=== PATIENT | female | born 1980 | race Hispanic/Latino ===

== ENCOUNTER 2016-10-21 09:46 | Emergency (ER) | payer MEDICAID ==
[2016-10-21 09:54] VITALS: O2SAT 100
[2016-10-21] MEDS ORDERED: Sodium Chloride 0.9% 1,000 ML IV ONE (10:16)
--- NOTE | 2016-10-21 10:24 | C.PDOC ---
History Of Present Illness 36 y/o patient arrives in the ED with complaints of lower abdominal pain for 1 week. The patient reports LMP was 10/02/16. Patient also c/o vaginal bleeding for 20 days. The patient denies symptoms of headaches, dizziness, vomiting, fever, sweats, or chills. Time Seen by Provider: 10/21/16 10:02 Chief Complaint (Nursing): Abdominal Pain History/Exam Limitations: no limitations Onset/Duration Of Symptoms: Days, Persistent Current Symptoms Are (Timing): Still Present Severity: Mild Location Of Pain/Discomfort: Suprapubic Quality Of Discomfort: "Pain". denies: Sharp, Aching, Cramping Associated Symptoms: denies: Fever, Chills, Nausea, Vomiting Exacerbating Factors: denies: Cough Past Medical History Reviewed: Historical Data, Nursing Documentation, Vital Signs Vital Signs: Last Vital Signs Temp 97.6 F 10/21/16 09:50 Pulse 76 10/21/16 09:50 Resp 20 10/21/16 09:50 BP 107/77 10/21/16 09:50 Pulse Ox 100 10/21/16 11:22 Surgical History: No Surg Hx, Family History: States: Unknown Family Hx - Social History Hx Alcohol Use: No Hx Substance Use: No - Immunization History Hx Tetanus Toxoid Vaccination: No Hx Influenza Vaccination: No Hx Pneumococcal Vaccination: No Review Of Systems Except As Marked, All Systems Reviewed And Found Negative. Constitutional: Negative for: Fever, Chills, Sweats Cardiovascular: Negative for: Chest Pain, Light Headedness Respiratory: Negative for: Cough, Shortness of Breath Gastrointestinal: Positive for: Abdominal Pain. Negative for: Vomiting, Diarrhea Genitourinary: Positive for: Vaginal Bleeding. Negative for: Dysuria, Vaginal Discharge Skin: Negative for: Rash Physical Exam - Physical Exam Appears: Non-toxic, No Acute Distress Skin: Normal Color, Warm Head: Atraumatic, Normacephalic Oral Mucosa: Moist Throat: Normal, No Erythema, No Exudate Chest: Symmetrical Cardiovascular: Rhythm Regular Respiratory: Rales, No Rhonchi Gastrointestinal/Abdominal: Normal Exam, No Bowel Sounds, Soft, Tenderness ( suprapubic), No Guarding, No Rebound Extremity: Capillary Refill (<2 sec. ) ED Course And Treatment - Laboratory Results Result Diagrams: 10/21/16 10:33 10/21/16 10:33 O2 Sat by Pulse Oximetry: 100 (RA) Pulse Ox Interpretation: Normal Progress Note: Toradol, IV fluids, labs ordered. On re-eval, patient reports improvement of pain and is resting comfortably, in no acute distress. Abdomen remains soft. Advised follow up with PMD/clinic within 1-2 days. Disposition Counseled Patient/Family Regarding: Studies Performed, Diagnosis, Need For Followup, Rx Given - Disposition Referrals: [facility] [Outside] [facility] [Outside] Disposition: HOME/ ROUTINE Disposition Time: 11:30 Condition: STABLE Additional Instructions: Follow up with EDITORIAL PROJECT MANAGER for further evaluation Prescriptions: Naproxen [Naprosyn] 1 tab PO BID PRN #25 tab PRN Reason: Pain Instructions: Dysfunctional Uterine Bleeding (ED), Abdominal Pain (ED) Forms: [employer] (Vietnamese), [employer] ([place]er) Print Language: SYRIAC - POA Present On Arrival: None - Clinical Impression Clinical Impression: Abdominal wall pain, DUB (dysfunctional uterine bleeding) - 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 - Scribe Statement The provider has reviewed the documentation as recorded by the Scribe (Beba Zamora)
[2016-10-21] MEDS ORDERED: Sodium Chloride 0.9% 1,000 ML ONE (10:36)
[2016-10-21 10:44] LABS: RBC URINE 2 /hpf (0-3); URINE BACTERIA RARE (<OCC); URINE BILIRUBIN NEGATIVE (NEGATIVE); URINE COLOR Straw (YELLOW); URINE GLUCOSE (UA) NORMAL (Normal); URINE KETONE NEGATIVE (NEGATIVE); URINE LEUKOCYTE ESTERASE NEG Leu/uL (Negative); URINE PROTEIN NEGATIVE (NEGATIVE); URINE UROBILINOGEN NORMAL mg/dL (0.2-1.0); WBC URINE 1 /hpf (0-5)
[2016-10-21 10:46] LABS: CHLORIDE 102 mmol/L (98-107)
[2016-10-21 10:47] LABS: POTASSIUM 4.1 mmol/L (3.6-5.2); SODIUM 139 mmol/L (132-148); URINE BLOOD 1+ (NEGATIVE)
[2016-10-21 10:49] LABS: ALB/GLOB RATIO 1.2 (1.0-2.1); ALKALINE PHOSPHATASE 43 U/L (38-126); AST/SGOT 21 U/L (14-36); BILIRUBIN,TOTAL 0.9 mg/dL (0.2-1.3); BLOOD UREA NITROGEN 13 mg/dL (7-17); CARBON DIOXIDE 23 mmol/L (22-30); GFR AFRICAN-AMERICAN > 60; TOTAL PROTEIN 7.4 g/dL (6.3-8.3)
[2016-10-21 10:50] LABS: ALT/SGPT 25 U/L (9-52); CALCIUM 8.6 mg/dl (8.6-10.4); GLUCOSE,RANDOM 80 mg/dL (65-105)
[2016-10-21 10:53] LABS: BASO % 0.5 % (0.0-2.0); EOS # 0.1 K/uL (0.0-0.7); HEMATOCRIT 38.7 % (34.0-47.0); LYMPH # 2.1 K/uL (1.0-4.3); LYMPH % 36.1 % (20.0-40.0); MEAN CELL VOLUME 82.7 fL (81.0-99.0); MEAN CORPUSCULAR HGB CONC 32.7 g/dL (33.0-37.0); MEAN PLATELET VOLUME 10.8 fL (7.2-11.7); MONO # 0.6 K/uL (0.0-0.8); MONO % 9.9 % (0.0-10.0); NRBC % 0.1 % (0.0-2.0); RED CELL DISTRIBUTION WIDTH 15.6 % (11.5-14.5); WHITE BLOOD COUNT 5.9 K/uL (4.8-10.8)
[2016-10-21 11:37] VITALS: BP 105/73; PULSE 69; RESP 14; TEMP 98.5
== END 2016-10-21 11:38 | disposition home or self-care (01) ==
LOC: C.ER 09:46
DX: N93.8 Other specified abnormal uterine and vaginal bleeding (principal); R10.30 Lower abdominal pain, unspecified
CPT/HCPCS: 80053; 81001; 83690; 84703; 85025; 96361; 96374; 99284; J1885; J7040

== ENCOUNTER 2017-08-25 08:43 | Emergency (ER) | payer MEDICAID, OTHER ==
[2017-08-25 09:00] VITALS: O2SAT 100; BMI 21.4
--- NOTE | 2017-08-25 09:36 | C.PDOC ---
History Of Present Illness <Debra Grove - Last Filed: 08/25/17 17:34> <Master Ortiz M - Last Filed: 08/26/17 07:38> Patient reports lower crampy abdominal pain and vaginal bleeding for 6 day denies fever, vomiting or diarrhea. (Debra Grove) History Per: Patient History/Exam Limitations: language barrier Onset/Duration Of Symptoms: Days (6) Current Symptoms Are (Timing): Still Present Severity: Mild Location Of Pain/Discomfort: Suprapubic Radiation Of Pain To:: None Quality Of Discomfort: Cramping Exacerbating Factors: None Last Bowel Movement: Today Recent travel outside of the [place]: No Abnormal Vaginal Bleeding: Yes <Debra Grove - Last Filed: 08/25/17 17:34> <Master Ortiz M - Last Filed: 08/26/17 07:38> Time Seen by Provider: 08/25/17 08:51 Chief Complaint (Nursing): Female Genitourinary Past Medical History Surgical History: Family History: States: Unknown Family Hx - Social History Hx Alcohol Use: No Hx Substance Use: No - Immunization History Hx Tetanus Toxoid Vaccination: No Hx Influenza Vaccination: No Hx Pneumococcal Vaccination: No <Debra Grove - Last Filed: 08/25/17 17:34> Vital Signs: Last Vital Signs Temp 98.5 F 08/25/17 15:11 Pulse 70 08/25/17 15:11 Resp 20 08/25/17 15:11 BP 102/69 08/25/17 15:11 Pulse Ox 100 08/25/17 17:35 Physical Exam - Physical Exam Appears: Well, Non-toxic Skin: Normal Color Oral Mucosa: Moist Neck: Normal Cardiovascular: Rhythm Regular Respiratory: Normal Breath Sounds Gastrointestinal/Abdominal: Tenderness (suprapubic) Extremity: Normal ROM Neurological/Psych: Oriented x3 <Debra Grove - Last Filed: 08/25/17 17:34> ED Course And Treatment - Laboratory Results Result Diagrams: 08/25/17 09:44 08/25/17 09:44 Lab Interpretation: Abnormal Urine POC: Negative O2 Sat by Pulse Oximetry: 100 Pulse Ox Interpretation: Normal - CT Scan/US No standard instances Other Rad Studies (CT/US): Read By Radiologist, Radiology Report Reviewed CT/US Interpretation: FINDINGS: UTERUS: Measures 9.9 x 5.0 x 7.8 cm. Anteverted and enlarged. 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 There is a 3.69 x 3.69 x 3.79 cm intramural posterior fundal fibroid. ENDOMETRIUM: Right horn endometrial stripe measures 6 mm and left horn endometrial stripe measures 8 mm. CERVIX: There are nabothian cysts in the cervix. RIGHT OVARY: Measures 4.1 x 2.4 x 4.0 cm. No solid mass. Normal flow. There is a 3.7 x 2.6 x 3.1 cm simple cyst. LEFT OVARY: Measures 2.4 x 2.5 x 1.9 cm. No solid mass. Normal flow. FREE FLUID: No significant free fluid noted. OTHER FINDINGS: None. IMPRESSION: 1. Didelphys uterus. 3.69 x 3.69 x 3.79 cm intramural posterior fundal fibroid. 2. 3.7 x 2.6 x 3.1 cm simple cyst in the right ovary. Progress Note: Patient treated with IVF NSS and toradol IV. On re-evaluation abdomen soft non-tender. Discharge and follow up with PATENT ATTORNEY Reassessment Condition: Unchanged <Debra Grove - Last Filed: 08/25/17 17:34> - Laboratory Results Result Diagrams: 08/25/17 09:44 08/25/17 09:44 <Master Ortiz - Last Filed: 08/26/17 07:38> Medical Decision Making <Debra Grove - Last Filed: 08/25/17 17:34> <Master Ortiz - Last Filed: 08/26/17 07:38> Medical Decision Making: attending: I have reviewed chart. I was available for consult. I submit my signature for billing purpose only. (Master Ortiz) Disposition Counseled Patient/Family Regarding: Studies Performed, Diagnosis, Need For Followup, Rx Given - Disposition Disposition Time: 15:00 - POA Present On Arrival: None <Debra Grove - Last Filed: 08/25/17 17:34> <Master Ortiz - Last Filed: 08/26/17 07:38> - Disposition Referrals: [facility] [Outside] [facility] [Outside] [facility] [Outside] Disposition: HOME/ ROUTINE Condition: STABLE Prescriptions: Ferrous Sulfate 325 mg PO DAILY #30 tablet Instructions: Anemia Caused by Low Iron, Heavy Periods, Uterine Fibroids (DC) Forms: [employer] (Lao) Print Language: YEMENI - Clinical Impression Clinical Impression: Uterine fibroid, DUB (dysfunctional uterine bleeding)
[2017-08-25 09:53] LABS: HCG,QUALITATIVE URINE NEGATIVE (NEGATIVE)
[2017-08-25 09:54] LABS: BASO % 0.8 % (0.0-2.0); EOS # 0.1 K/uL (0.0-0.7); EOS % 1.5 % (0.0-4.0); LYMPH # 1.5 K/uL (1.0-4.3); LYMPH % 31.3 % (20.0-40.0); MEAN CORPUSCULAR HEMOGLOBIN 22.1 pg (27.0-31.0); MEAN CORPUSCULAR HGB CONC 31.2 g/dL (33.0-37.0); MEAN PLATELET VOLUME 10.1 fL (7.2-11.7); MONO # 0.5 K/uL (0.0-0.8); MONO % 10.8 % (0.0-10.0); NEUT # 2.7 K/uL (1.8-7.0); NEUT % 55.6 % (50.0-75.0); NRBC % 0.2 % (0.0-2.0); RBC 3.54 Mil/uL (3.80-5.20); RED CELL DISTRIBUTION WIDTH 19.8 % (11.5-14.5); WHITE BLOOD COUNT 4.8 K/uL (4.8-10.8)
[2017-08-25 10:00] LABS: URINE BILIRUBIN NEGATIVE (NEGATIVE); URINE BLOOD 3+ (NEGATIVE); URINE CLARITY Hazy (Clear); URINE GLUCOSE (UA) NORMAL (Normal); URINE LEUKOCYTE ESTERASE NEG Leu/uL (Negative); URINE PROTEIN 2+ mg/dL (NEGATIVE); URINE UROBILINOGEN NORMAL mg/dL (0.2-1.0)
[2017-08-25 10:00] LABS: HEMOGLOBIN 7.8 g/dL (11.0-16.0); MEAN CELL VOLUME 70.8 fL (81.0-99.0)
[2017-08-25 10:04] LABS: URINE COLOR DARK RED (YELLOW)
[2017-08-25 10:07] LABS: BLOOD UREA NITROGEN 10 mg/dL (7-17); CALCIUM 8.9 mg/dl (8.6-10.4); GFR AFRICAN-AMERICAN > 60; GFR NON-AFRICAN AMERICAN > 60
--- NOTE | 2017-08-25 14:43 | US ---
HISTORY: vaginal bleeding COMPARISON: 05/11/2016. TECHNIQUE: Transabdominal transvaginal FINDINGS: UTERUS: Measures 9.9 x 5.0 x 7.8 cm. Anteverted and enlarged. 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 There is a 3.69 x 3.69 x 3.79 cm intramural posterior fundal fibroid. ENDOMETRIUM: Right horn endometrial stripe measures 6 mm and left horn endometrial stripe measures 8 mm. CERVIX: There are nabothian cysts in the cervix. RIGHT OVARY: Measures 4.1 x 2.4 x 4.0 cm. No solid mass. Normal flow. There is a 3.7 x 2.6 x 3.1 cm simple cyst. LEFT OVARY: Measures 2.4 x 2.5 x 1.9 cm. No solid mass. Normal flow. FREE FLUID: No significant free fluid noted. OTHER FINDINGS: None. IMPRESSION: 1. Didelphys uterus. 3.69 x 3.69 x 3.79 cm intramural posterior fundal fibroid. 2. 3.7 x 2.6 x 3.1 cm simple cyst in the right ovary.
[2017-08-25 15:12] VITALS: BP 102/69; PULSE 70; RESP 20; TEMP 98.5
== END 2017-08-25 15:11 | disposition home or self-care (01) ==
LOC: C.ER 08:43
DX: N93.8 Other specified abnormal uterine and vaginal bleeding (principal); D25.9 Leiomyoma of uterus, unspecified
CPT/HCPCS: 76830; 76856; 80048; 81001; 84703; 85025; 96374; 99285; J1885

== ENCOUNTER 2017-10-29 16:33 | Inpatient (IN) | payer OTHER ==
[2017-10-29 16:34] VITALS: BMI 21.4
[2017-10-29 17:34] LABS: BASO # 0.1 K/uL (0.0-0.2); EOS # 0.1 K/uL (0.0-0.7); NEUT # 3.5 K/uL (1.8-7.0); WHITE BLOOD COUNT 6.3 K/uL (4.8-10.8)
[2017-10-29 17:42] LABS: SQUAMOUS EPITHIAL < 1 /hpf (0-5); URINE BACTERIA RARE (<OCC); URINE BILIRUBIN NEGATIVE (NEGATIVE); URINE BLOOD 2+ (NEGATIVE); URINE CLARITY Clear (Clear); URINE COLOR Straw (YELLOW); URINE GLUCOSE (UA) NORMAL (Normal); URINE LEUKOCYTE ESTERASE NEG Leu/uL (Negative); URINE PROTEIN NEGATIVE (NEGATIVE); URINE UROBILINOGEN NORMAL mg/dL (0.2-1.0)
[2017-10-29 17:44] LABS: BASO % 1.4 % (0.0-2.0); EOS % 1.4 % (0.0-4.0); LYMPH # 2.1 K/uL (1.0-4.3); LYMPH % 32.6 % (20.0-40.0); MEAN CORPUSCULAR HEMOGLOBIN 18.1 pg (27.0-31.0); MEAN CORPUSCULAR HGB CONC 29.8 g/dL (33.0-37.0); MEAN PLATELET VOLUME 9.3 fL (7.2-11.7); MONO # 0.6 K/uL (0.0-0.8); MONO % 9.4 % (0.0-10.0); NEUT % 55.2 % (50.0-75.0); NRBC % 0.2 % (0.0-2.0); RBC 3.33 Mil/uL (3.80-5.20)
[2017-10-29 17:48] LABS: MEAN CELL VOLUME 60.8 fL (81.0-99.0)
[2017-10-29 17:51] LABS: ALB/GLOB RATIO 1.5 (1.0-2.1); ALBUMIN 4.9 g/dL (3.5-5.0); AST/SGOT 65 U/L (14-36); BLOOD UREA NITROGEN 11 mg/dL (7-17); CALCIUM 9.6 mg/dl (8.6-10.4); GFR NON-AFRICAN AMERICAN > 60
--- NOTE | 2017-10-29 17:57 | C.PDOC ---
History Of Present Illness 37 year old female patient with hx of fibroids sent from clinic to the ER with c /o ongoing vaginal bleeding. Associated symptoms includes dizziness, lightheadedness, nausea, fatigue and weakness. Patient denies chest pain, fever , chills and cough. Time Seen by Provider: 10/29/17 16:59 Chief Complaint (Nursing): Abdominal Pain History Per: Patient History/Exam Limitations: no limitations Onset/Duration Of Symptoms: Days Current Symptoms Are (Timing): Still Present Past Medical History Reviewed: Historical Data, Nursing Documentation, Vital Signs Vital Signs: Last Vital Signs Temp 98.7 F 11/02/17 00:00 Pulse 63 11/02/17 00:00 Resp 20 11/02/17 00:00 BP 101/65 11/02/17 00:00 Pulse Ox 99 11/02/17 07:35 - Medical History Other PMH: fibroids Surgical History: Family History: States: Unknown Family Hx - Social History Hx Alcohol Use: No Hx Substance Use: No - Immunization History Hx Tetanus Toxoid Vaccination: No Hx Influenza Vaccination: No Hx Pneumococcal Vaccination: No Review Of Systems Constitutional: Positive for: Weakness Gastrointestinal: Positive for: Nausea Genitourinary: Positive for: Vaginal Bleeding Neurological: Positive for: Weakness, Dizziness, Other (fatigue) Physical Exam - Physical Exam Appears: Non-toxic, No Acute Distress Skin: Normal Color, Warm, Dry Head: Atraumatic, Normacephalic Eye(s): bilateral: Normal Inspection, PERRL, EOMI Nose: Normal Oral Mucosa: Moist Chest: Symmetrical Cardiovascular: Rhythm Regular, No Murmur Respiratory: Normal Breath Sounds, No Rales, No Rhonchi, No Wheezing Gastrointestinal/Abdominal: Soft, Tenderness (mild suprapubic tenderness) Extremity: Normal ROM (x4) Extremity: Bilateral: Atraumatic, Normal Color And Temperature Neurological/Psych: Oriented x3, Normal Speech ED Course And Treatment - Laboratory Results Result Diagrams: 11/01/17 08:16 11/01/17 08:16 O2 Sat by Pulse Oximetry: 99 (RA) Pulse Ox Interpretation: Normal - Physician Consult Information Time Consulting Physician Contacted: 18:10 Physician Contacted: Serene Magallon Outcome Of Conversation: Dr. Magallon agrees to see patient. Dr. Sid Brito will admit patient for further evaluation and consult Medical Decision Making Medical Decision Making: Impression: ongoing vaginal bleed Plans: -- blood work -- test -- UA -- blood bank Reassess: Patient is resting comfortably; remains afebrile. Case discussed with Dr. Magallon, OBGYN, and patient was informed that she will be admitted under Dr. Sid Christian's service for further evaluation. DR. Magallon will be on consult and is in ER to see patient. Disposition Discussed With Dr.: Lenin Christian Counseled Patient/Family Regarding: Studies Performed, Diagnosis - Disposition Disposition: HOSPITALIZED Disposition Time: 18:16 Condition: FAIR - Clinical Impression Clinical Impression: Symptomatic anemia, DUB (dysfunctional uterine bleeding) - Scribe Statement The provider has reviewed the documentation as recorded by the Mehdi Bedolla Do Provider Attestation: All medical record entries made by the Heatheribe were at my direction and personally dictated by me. I have reviewed the chart and agree that the record accurately reflects my personal performance of the history, physical exam, medical decision making, and the department course for this patient. I have also personally directed, reviewed, and agree with the discharge instructions and disposition.
[2017-10-29 18:01] LABS: ALT/SGPT 101 U/L (9-52); LIPASE 66 U/L (23-300)
--- NOTE | 2017-10-29 19:28 | CP.PCM.HP ---
Past Patient History - Past Social History Smoking Status: Never Smoked - PSYCHIATRIC Hx Substance Use: No - SURGICAL HISTORY Hx Surgeries: Yes Hx Section: Yes Other/Comment: Ectopic 2001 S/P surgery - ANESTHESIA Hx Anesthesia: Yes Hx Anesthesia Reactions: No Meds Allergies/Adverse Reactions: Allergies Allergy/AdvReac Type Severity Reaction Status Date / Time No Known Allergies Allergy Verified 10/29/17 16:47 Physical Exam - Constitutional Appears: Well - Head Exam Head Exam: ATRAUMATIC, NORMAL INSPECTION, NORMOCEPHALIC - Eye Exam Eye Exam: EOMI, Normal appearance, PERRL Pupil Exam: NORMAL ACCOMODATION, PERRL - ENT Exam ENT Exam: Mucous Membranes Moist, Normal Exam - Neck Exam Neck exam: Positive for: Normal Inspection - Respiratory Exam Respiratory Exam: Decreased Breath Sounds - Cardiovascular Exam Cardiovascular Exam: REGULAR RHYTHM, +S1, +S2 - GI/Abdominal Exam GI & Abdominal Exam: Diminished Bowel Sounds, Soft - Rectal Exam Rectal Exam: Deferred Results - Vital Signs Recent Vital Signs: Last Vital Signs Temp 98.5 F 10/29/17 19:05 Pulse 78 10/29/17 19:05 Resp 16 10/29/17 19:05 BP 107/74 10/29/17 19:05 Pulse Ox 100 10/29/17 19:05 - Labs Result Diagrams: 10/29/17 17:30 10/29/17 17:30 Labs: Laboratory Results - last 24 hr 10/29/17 10/29/17 10/29/17 17:04 17:30 17:30 WBC 6.3 RBC 3.33 L Hgb 6.0 L* Hct 20.2 L MCV 60.8 L D MCH 18.1 L MCHC 29.8 L RDW 20.0 H Plt Count 125 L D MPV 9.3 Neut % (Auto) 55.2 Lymph % (Auto) 32.6 [place] % (Auto) 9.4 Eos % (Auto) 1.4 Baso % (Auto) 1.4 Neut # (Auto) 3.5 Lymph # (Auto) 2.1 [place] # (Auto) 0.6 Eos # (Auto) 0.1 Baso # (Auto) 0.1 Differential Comment Sodium Potassium Chloride Carbon Dioxide Anion Gap BUN Creatinine Est GFR ( Amer) Est GFR (Non-Af Amer) Random Glucose Calcium Total Bilirubin AST ALT Alkaline Phosphatase Total Protein Albumin Globulin Albumin/Globulin Ratio Lipase Urine Color Straw Urine Clarity Clear Urine pH 5.0 Ur Specific [place] 1.001 L Urine Protein Negative Urine Glucose (UA) Normal Urine Ketones Negative Urine Blood 2+ H Urine Nitrate Negative Urine Bilirubin Negative Urine Urobilinogen Normal Ur Leukocyte Esterase Neg Urine WBC (Auto) 1 Urine RBC (Auto) 4 H Ur Squamous Epith Cells < 1 Urine Bacteria Rare Blood Type O POSITIVE Antibody Screen Negative 10/29/17 17:30 WBC RBC Hgb Hct MCV MCH MCHC RDW Plt Count MPV Neut % (Auto) Lymph % (Auto) [place] % (Auto) Eos % (Auto) Baso % (Auto) Neut # (Auto) Lymph # (Auto) [place] # (Auto) Eos # (Auto) Baso # (Auto) Differential Comment Sodium 137 Potassium 4.0 Chloride 97 L Carbon Dioxide 27 Anion Gap 17 BUN 11 Creatinine 0.7 Est GFR ( Amer) > 60 Est GFR (Non-Af Amer) > 60 Random Glucose 122 H Calcium 9.6 Total Bilirubin 0.7 AST 65 H ALT 101 H D Alkaline Phosphatase 53 Total Protein 8.0 Albumin 4.9 Globulin 3.2 Albumin/Globulin Ratio 1.5 Lipase 66 Urine Color Urine Clarity Urine pH Ur Specific [place] Urine Protein Urine Glucose (UA) Urine Ketones Urine Blood Urine Nitrate Urine Bilirubin Urine Urobilinogen Ur Leukocyte Esterase Urine WBC (Auto) Urine RBC (Auto) Ur Squamous Epith Cells Urine Bacteria Blood Type Antibody Screen
--- NOTE | 2017-10-29 20:39 | CP.PCM.CON ---
History of Present Illness - History of Present Illness History of Present Illness: Asked by Dr. Ortiz to see patient : h/o leiomyomatous uteri, symptomatic anemia Patient received in E.D., on stretcher, Bed#14. Friend at bedside 37y.o. , presumed onset of menses 10/24/17 to present, came to E.D. due to feeling worse with new onset of nausea and vomiting 10/28/17, and a h/o worsening malaise since 08/08/17: weakness, dizziness, lightheadedness "all the time". Denies LOC/syncope. Also, pelvic pain "all the time" (not just with menses), relieved with motrin. H/O constipation: has BM 3 times a week. HPI: h/o menorrhagia, since menses 08/08/17; bled until 09/2017. Had a D&C/ hysteroscopy 10/12/17 with private therapy administrative assistant Dr. Ruiz Kay. Uterus didelphys confirmed, septum visualized and endometrial curettings x 2 and endocervical curettings taken; results negative for malignancy. 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 2005, diagnosed with leiomyoma; and didelphys uterus. 2007, endometriosis. Pap 10/2016 and mammogram 11/2016 - both negative. PMH: 2010, Gonzalez's palsy PSH: 2001, open laparotomy for ectopic (?salpingectomy, [facility]). 2005,laparoscopy, infertility work up. 2007, laparoscopy, endometriosis. 2018, D&C/hysteroscopy. NKDA Meds: iron - once a day Soc Hx: denies tobacco, illicit drug or EtOH use. ; current sexual relationship x 2 years. Unemployed. Fam Hx: Mother alive 65y.o. Father alive 68 y.o., both, no med issues Review of Systems - Review of Systems All systems: reviewed and no additional remarkable complaints except (as per HPI ) - Constitutional Constitutional: Malaise, Weakness - Reproductive: Female Reproductive:Female: As Per HPI - Menstruation Menstruation: As Per HPI Past Patient History - Tetanus Immunizations Tetanus Immunization: Unknown - Past Medical History & Family History Past Medical History?: Yes Past Family History: Reviewed and not pertinent - Past Social History Smoking Status: Never Smoked - CARDIAC Hx Cardiac Disorders: No - PULMONARY Hx Respiratory Disorders: No - NEUROLOGICAL Hx Neurological Disorder: Yes Hx Dizziness: Yes Other/Comment: Gonzalez's palsy - HEENT Hx HEENT Problems: No - RENAL Hx Chronic Kidney Disease: No - ENDOCRINE/METABOLIC Hx Endocrine Disorders: No - HEMATOLOGICAL/ONCOLOGICAL Hx Anemia: Yes Hx Blood Transfusions: No - INTEGUMENTARY Hx Dermatological Problems: No - GASTROINTESTINAL Hx Constipation: Yes - GENITOURINARY/GYNECOLOGICAL Hx Genitourinary Disorders: Yes Hx Reproductive Disorders: Yes Other/Comment: Uterus didelphys; endometriosis LMP:: 10/24/2017 : 1 Para: 0 Termination of : 1 - PSYCHIATRIC Hx Substance Use: No - SURGICAL HISTORY Hx Surgeries: Yes Hx Dilation and Curettage: Yes Other/Comment: Ectopic 2002 S/P surgery; laparoscopy, 2005 and 2007 - ANESTHESIA Hx Anesthesia: Yes Hx Anesthesia Reactions: No Meds Allergies/Adverse Reactions: Allergies Allergy/AdvReac Type Severity Reaction Status Date / Time No Known Allergies Allergy Verified 10/29/17 16:47 Physical Exam - Constitutional Appears: Well, No Acute Distress - Head Exam Head Exam: ATRAUMATIC, NORMOCEPHALIC - Eye Exam Eye Exam: Normal appearance - ENT Exam ENT Exam: Mucous Membranes Dry - Neck Exam Neck exam: Positive for: Full Rom - Respiratory Exam Respiratory Exam: NORMAL BREATHING PATTERN - Cardiovascular Exam Cardiovascular Exam: REGULAR RHYTHM - GI/Abdominal Exam GI & Abdominal Exam: Soft, Tenderness (generalized lower quadrant tenderness to palpation. Minimal vaginal spotting noted) - Rectal Exam Rectal Exam: Deferred - Exam External exam: NORMAL EXTERNAL EXAM - Extremities Exam Extremities exam: Positive for: full ROM - Neurological Exam Neurological exam: Alert, Oriented x3 - Psychiatric Exam Psychiatric exam: Normal Affect, Normal Mood - Skin Skin Exam: Dry, Intact, Pallor, Warm Results - Vital Signs Recent Vital Signs: Last Vital Signs Temp 98.5 F 10/29/17 19:05 Pulse 71 10/29/17 19:54 Resp 20 10/29/17 19:54 BP 103/69 10/29/17 19:54 Pulse Ox 100 10/29/17 19:54 - Labs Result Diagrams: 10/29/17 17:30 10/29/17 17:30 Labs: Laboratory Results - last 24 hr 10/29/17 10/29/17 10/29/17 17:04 17:30 17:30 WBC 6.3 RBC 3.33 L Hgb 6.0 L* Hct 20.2 L MCV 60.8 L D MCH 18.1 L MCHC 29.8 L RDW 20.0 H Plt Count 125 L D MPV 9.3 Neut % (Auto) 55.2 Lymph % (Auto) 32.6 [place] % (Auto) 9.4 Eos % (Auto) 1.4 Baso % (Auto) 1.4 Neut # (Auto) 3.5 Lymph # (Auto) 2.1 [place] # (Auto) 0.6 Eos # (Auto) 0.1 Baso # (Auto) 0.1 Differential Comment Sodium Potassium Chloride Carbon Dioxide Anion Gap BUN Creatinine Est GFR ( Amer) Est GFR (Non-Af Amer) Random Glucose Calcium Total Bilirubin AST ALT Alkaline Phosphatase Total Protein Albumin Globulin Albumin/Globulin Ratio Lipase Urine Color Straw Urine Clarity Clear Urine pH 5.0 Ur Specific [place] 1.001 L Urine Protein Negative Urine Glucose (UA) Normal Urine Ketones Negative Urine Blood 2+ H Urine Nitrate Negative Urine Bilirubin Negative Urine Urobilinogen Normal Ur Leukocyte Esterase Neg Urine WBC (Auto) 1 Urine RBC (Auto) 4 H Ur Squamous Epith Cells < 1 Urine Bacteria Rare Blood Type O POSITIVE Antibody Screen Negative 10/29/17 17:30 WBC RBC Hgb Hct MCV MCH MCHC RDW Plt Count MPV Neut % (Auto) Lymph % (Auto) [place] % (Auto) Eos % (Auto) Baso % (Auto) Neut # (Auto) Lymph # (Auto) [place] # (Auto) Eos # (Auto) Baso # (Auto) Differential Comment Sodium 137 Potassium 4.0 Chloride 97 L Carbon Dioxide 27 Anion Gap 17 BUN 11 Creatinine 0.7 Est GFR ( Amer) > 60 Est GFR (Non-Af Amer) > 60 Random Glucose 122 H Calcium 9.6 Total Bilirubin 0.7 AST 65 H ALT 101 H D Alkaline Phosphatase 53 Total Protein 8.0 Albumin 4.9 Globulin 3.2 Albumin/Globulin Ratio 1.5 Lipase 66 Urine Color Urine Clarity Urine pH Ur Specific [place] Urine Protein Urine Glucose (UA) Urine Ketones Urine Blood Urine Nitrate Urine Bilirubin Urine Urobilinogen Ur Leukocyte Esterase Urine WBC (Auto) Urine RBC (Auto) Ur Squamous Epith Cells Urine Bacteria Blood Type Antibody Screen Assessment & Plan - Assessment and Plan (Free Text) Assessment: Labs and ultrasound reports from 07/2017 to present reviewed by me. Patient also presented copies of operative procedure, findings and biopsy results from -all reviewed by me. 37 y.o. P0010, h/o menorrhagia, leiomyomatous uterus, didelphys uterus, with symptomatic anemia. S/P recent D&C/hysteroscopy with confirmation of findings and negative biopsy. Patient's relationship with private therapy administrative assistant, Dr. Ruiz uGsman is of one year's duration; patient to continue under his care. Patient's current menstrual cycle appears to be ending. No therapy administrative assistant intervention indicated at this time. Plan: 1) Admission for blood transfusion and subsequent care, as per Medicine Thank you for the pleasure of this consultation - Date & Time Date: 10/29/17 Time: 18:40
[2017-10-30 01:47] VITALS: RESP 20
[2017-10-30 07:33] LABS: BASO # 0.1 K/uL (0.0-0.2); EOS # 0.1 K/uL (0.0-0.7); EOS % 1.6 % (0.0-4.0); LYMPH # 1.8 K/uL (1.0-4.3); LYMPH % 29.4 % (20.0-40.0); MEAN CORPUSCULAR HEMOGLOBIN 22.4 pg (27.0-31.0); MEAN PLATELET VOLUME 9.6 fL (7.2-11.7); MONO # 0.6 K/uL (0.0-0.8); MONO % 10.5 % (0.0-10.0); NEUT # 3.5 K/uL (1.8-7.0); NEUT % 57.5 % (50.0-75.0); NRBC % 0.1 % (0.0-2.0); RBC 3.91 Mil/uL (3.80-5.20); RED CELL DISTRIBUTION WIDTH 26.8 % (11.5-14.5)
[2017-10-30 07:42] LABS: HEMOGLOBIN 8.8 g/dL (11.0-16.0)
[2017-10-30 07:51] LABS: ALB/GLOB RATIO 1.4 (1.0-2.1); ALBUMIN 3.7 g/dL (3.5-5.0); ALT/SGPT 83 U/L (9-52); AST/SGOT 52 U/L (14-36); BLOOD UREA NITROGEN 8 mg/dL (7-17); CALCIUM 8.6 mg/dl (8.6-10.4); GFR NON-AFRICAN AMERICAN > 60
[2017-10-30 08:25] LABS: FERRITIN 4.2 ng/mL
[2017-10-30 08:55] LABS: FOLATE > 20.0 ng/mL
[2017-10-30] MEDS ORDERED: Pneumococcal 23-Valent Vaccine IM ONE (10:00)
--- NOTE | 2017-10-30 10:34 | CP.PCM.PN ---
Subjective - Date & Time of Evaluation Date of Evaluation: 10/30/17 Time of Evaluation: 08:30 - Subjective Subjective: clinically same Objective - Vital Signs/Intake and Output Vital Signs (last 24 hours): Temp Pulse Resp BP Pulse Ox 98.6 F 61 20 102/71 100 10/30/17 08:00 10/30/17 08:00 10/30/17 08:00 10/30/17 08:00 10/30/17 08:00 Intake and Output: 10/30/17 10/30/17 06:59 18:59 Intake Total 400 Balance 400 - Medications Medications: Current Medications Ferrous Sulfate (Feosol) 325 mg PO DAILY JONATHAN Pantoprazole Sodium (Protonix Ec Tab) 40 mg PO DAILY JONATHAN - Labs Labs: 10/30/17 07:09 10/30/17 07:09 - Constitutional Appears: Well - Head Exam Head Exam: ATRAUMATIC, NORMAL INSPECTION, NORMOCEPHALIC - Eye Exam Eye Exam: EOMI, Normal appearance, PERRL Pupil Exam: NORMAL ACCOMODATION, PERRL - ENT Exam ENT Exam: Mucous Membranes Moist, Normal Exam - Neck Exam Neck Exam: Full ROM, Normal Inspection. absent: Lymphadenopathy - Respiratory Exam Respiratory Exam: Decreased Breath Sounds - Cardiovascular Exam Cardiovascular Exam: REGULAR RHYTHM, +S1, +S2 - GI/Abdominal Exam GI & Abdominal Exam: Soft, Diminished Bowel Sounds - Rectal Exam Rectal Exam: Deferred
[2017-10-30] MEDS: Pantoprazole 40 mg EC Tab PO SCH (10:52)
--- NOTE | 2017-10-30 19:45 | CP.PCM.CON ---
History of Present Illness - History of Present Illness History of Present Illness: 37 year old female with a history of fibroid uterus, dysfunctional uterine bleeding s/p D+C, admitted with symptomatic anemia. The patient notes to daily vaginal bleeding for about 3 months time. She saw her DIRECTOR FINANCIAL SYSTEMS who did a D+C about 2 weeks ago. She notes her bleeding has not improved. She began to feel dizzy and have palpitations which prompted her to come to the ER. In the ER, she was found to have a hgb of 6.0. She is s/p 2U PRBC and notes to feeling better. Past medical history: fibroid uterus, anemia Past surgical history: D+C Family history: Denies hematologic and oncologic problems Social history: Denies tobacco, alcohol, and illicit drug use. Allergies: NKA Review of systems: All remaining review of systems including HEENT, cardiovascular, respiratory, gastrointestinal, genitourinary, musculoskeletal, dermatologic, neurologic, and psychiatric are negative unless mentioned in the HPI. Past Patient History - Tetanus Immunizations Tetanus Immunization: Unknown - Past Medical History & Family History Past Medical History?: Yes - Past Social History Smoking Status: Never Smoked - CARDIAC Hx Cardiac Disorders: No - PULMONARY Hx Respiratory Disorders: No - NEUROLOGICAL Hx Neurological Disorder: Yes Hx Dizziness: Yes Other/Comment: Gonzalez's palsy - HEENT Hx HEENT Problems: No - RENAL Hx Chronic Kidney Disease: No - ENDOCRINE/METABOLIC Hx Endocrine Disorders: No - HEMATOLOGICAL/ONCOLOGICAL Hx Anemia: Yes Hx Blood Transfusions: No - INTEGUMENTARY Hx Dermatological Problems: No - MUSCULOSKELETAL/RHEUMATOLOGICAL Hx Falls: No - GASTROINTESTINAL Hx Constipation: Yes - GENITOURINARY/GYNECOLOGICAL Hx Genitourinary Disorders: Yes Hx Reproductive Disorders: Yes Other/Comment: Uterus didelphys; endometriosis - PSYCHIATRIC Hx Substance Use: No - SURGICAL HISTORY Hx Surgeries: Yes Hx Dilation and Curettage: Yes Other/Comment: Ectopic 2001 S/P surgery; laparoscopy, 2005 and 2007 - ANESTHESIA Hx Anesthesia: Yes Hx Anesthesia Reactions: No Meds Allergies/Adverse Reactions: Allergies Allergy/AdvReac Type Severity Reaction Status Date / Time No Known Allergies Allergy Verified 10/29/17 16:47 - Medications Medications: Current Medications Ferric Sodium Gluconate Complex (Ferrlecit) 125 mg IVPB DAILY [facility] Stop: 11/07/17 20:01 Ferrous Sulfate (Feosol) 325 mg PO DAILY [facility] Last Admin: 10/30/17 10:52 Dose: 325 mg Pantoprazole Sodium (Protonix Ec Tab) 40 mg PO DAILY [facility] Last Admin: 10/30/17 10:52 Dose: 40 mg Physical Exam - Head Exam Head Exam: ATRAUMATIC - Eye Exam Eye Exam: Normal appearance - ENT Exam ENT Exam: Mucous Membranes Dry - Respiratory Exam Respiratory Exam: NORMAL BREATHING PATTERN - Cardiovascular Exam Cardiovascular Exam: +S1, +S2 - GI/Abdominal Exam GI & Abdominal Exam: Normal Bowel Sounds - Extremities Exam Extremities exam: Positive for: normal inspection - Neurological Exam Neurological exam: Oriented x3 Results - Vital Signs Recent Vital Signs: Last Vital Signs Temp 97.7 F 10/30/17 15:21 Pulse 68 10/30/17 15:21 Resp 20 10/30/17 15:21 BP 103/70 10/30/17 15:21 Pulse Ox 100 10/30/17 15:21 - Labs Result Diagrams: 10/30/17 07:09 10/30/17 07:09 Labs: Laboratory Results - last 24 hr 10/29/17 10/30/17 10/30/17 17:04 07:09 07:09 WBC 6.0 RBC 3.91 Hgb 8.8 L D Hct 27.3 L MCV 70.0 L D MCH 22.4 L MCHC 32.0 L RDW 26.8 H Plt Count 106 L MPV 9.6 Neut % (Auto) 57.5 Lymph % (Auto) 29.4 [place] % (Auto) 10.5 H Eos % (Auto) 1.6 Baso % (Auto) 1.0 Neut # (Auto) 3.5 Lymph # (Auto) 1.8 [place] # (Auto) 0.6 Eos # (Auto) 0.1 Baso # (Auto) 0.1 Differential Comment Retic Count Sodium 140 Potassium 3.7 Chloride 107 Carbon Dioxide 23 Anion Gap 13 BUN 8 Creatinine 0.6 L Est GFR ( Amer) > 60 Est GFR (Non-Af Amer) > 60 Random Glucose 83 Calcium 8.6 Ferritin 4.2 Total Bilirubin 1.4 H AST 52 H ALT 83 H Alkaline Phosphatase 45 Total Protein 6.3 Albumin 3.7 Globulin 2.6 Albumin/Globulin Ratio 1.4 Vitamin B12 879 Folate > 20.0 Blood Type O POSITIVE Antibody Screen Negative 10/30/17 07:09 WBC RBC Hgb Hct MCV MCH MCHC RDW Plt Count MPV Neut % (Auto) Lymph % (Auto) [place] % (Auto) Eos % (Auto) Baso % (Auto) Neut # (Auto) Lymph # (Auto) [place] # (Auto) Eos # (Auto) Baso # (Auto) Differential Comment Retic Count 2.4 H Sodium Potassium Chloride Carbon Dioxide Anion Gap BUN Creatinine Est GFR ( Amer) Est GFR (Non-Af Amer) Random Glucose Calcium Ferritin Total Bilirubin AST ALT Alkaline Phosphatase Total Protein Albumin Globulin Albumin/Globulin Ratio Vitamin B12 Folate Blood Type Antibody Screen Assessment & Plan (1) Symptomatic anemia Assessment and Plan: work up consistent with iron deficiency anemia secondary to dysfunction uterine bleeding s/p 2U PRBC will start IV iron [employer] f/u repeat CBC in AM Status: Acute (2) Thrombocytopenia Assessment and Plan: mild likely consumptive from chronic bleeding will check HIV and hepatitis panel Thank you for this interesting consult. Status: Acute
[2017-10-30] MEDS ORDERED: Ferric Sodium Gluconat Complex 62.5 mg/5 ml Vial IVPB SCH (20:00)
[2017-10-30] MEDS: Ferric Sodium Gluconat Complex 125 MG in Sodium Chloride 0.9% 100 ML IVPB SCH (21:55)
[2017-10-31 08:36] LABS: BASO # 0.1 K/uL (0.0-0.2); EOS # 0.1 K/uL (0.0-0.7); EOS % 1.6 % (0.0-4.0); HEMOGLOBIN 9.3 g/dL (11.0-16.0); LYMPH # 1.4 K/uL (1.0-4.3); LYMPH % 25.4 % (20.0-40.0); MEAN CELL VOLUME 69.7 fL (81.0-99.0); MEAN CORPUSCULAR HEMOGLOBIN 22.4 pg (27.0-31.0); MEAN CORPUSCULAR HGB CONC 32.1 g/dL (33.0-37.0); MEAN PLATELET VOLUME 9.1 fL (7.2-11.7); MONO # 0.6 K/uL (0.0-0.8); MONO % 11.1 % (0.0-10.0); NEUT # 3.3 K/uL (1.8-7.0); NEUT % 60.9 % (50.0-75.0); NRBC % 0.2 % (0.0-2.0); RBC 4.15 Mil/uL (3.80-5.20); RED CELL DISTRIBUTION WIDTH 26.9 % (11.5-14.5); WHITE BLOOD COUNT 5.4 K/uL (4.8-10.8)
[2017-10-31 08:48] LABS: ALB/GLOB RATIO 1.3 (1.0-2.1); ALT/SGPT 78 U/L (9-52); AST/SGOT 48 U/L (14-36); BLOOD UREA NITROGEN 12 mg/dL (7-17); CALCIUM 9.3 mg/dl (8.6-10.4); GFR NON-AFRICAN AMERICAN > 60
[2017-10-31] MEDS: Pantoprazole 40 mg EC Tab PO SCH (09:23)
--- NOTE | 2017-10-31 19:40 | CP.PCM.PN ---
Subjective - Date & Time of Evaluation Date of Evaluation: 10/31/17 Time of Evaluation: 08:30 - Subjective Subjective: clinically same Objective - Vital Signs/Intake and Output Vital Signs (last 24 hours): Temp Pulse Resp BP Pulse Ox 98.4 F 67 20 99/63 L 98 10/31/17 16:00 10/31/17 16:00 10/31/17 16:00 10/31/17 16:00 10/31/17 16:00 - Medications Medications: Current Medications Ferrous Sulfate (Feosol) 325 mg PO DAILY [facility] Last Admin: 10/31/17 09:23 Dose: 325 mg Ferric Sodium Gluconate Complex 125 mg/ Sodium Chloride 110 mls @ 110 mls/hr IVPB HS [facility] Stop: 11/07/17 22:01 Last Admin: 10/30/17 21:55 Dose: 110 mls/hr Pantoprazole Sodium (Protonix Ec Tab) 40 mg PO DAILY [facility] Last Admin: 10/31/17 09:23 Dose: 40 mg - Labs Labs: 10/31/17 08:18 10/31/17 08:18 - Constitutional Appears: Well - Head Exam Head Exam: ATRAUMATIC, NORMAL INSPECTION, NORMOCEPHALIC - Eye Exam Eye Exam: EOMI, Normal appearance, PERRL Pupil Exam: NORMAL ACCOMODATION, PERRL - ENT Exam ENT Exam: Mucous Membranes Moist, Normal Exam - Neck Exam Neck Exam: Full ROM, Normal Inspection. absent: Lymphadenopathy - Respiratory Exam Respiratory Exam: Decreased Breath Sounds - Cardiovascular Exam Cardiovascular Exam: REGULAR RHYTHM, +S1, +S2 - GI/Abdominal Exam GI & Abdominal Exam: Soft, Diminished Bowel Sounds - Rectal Exam Rectal Exam: Deferred
[2017-10-31] MEDS: Ferric Sodium Gluconat Complex 125 MG in Sodium Chloride 0.9% 100 ML IVPB SCH (22:23)
[2017-11-01 08:40] LABS: BASO # 0.1 K/uL (0.0-0.2); BASO % 1.7 % (0.0-2.0); EOS # 0.1 K/uL (0.0-0.7); EOS % 2.3 % (0.0-4.0); HEMOGLOBIN 9.5 g/dL (11.0-16.0); LYMPH # 1.8 K/uL (1.0-4.3); LYMPH % 33.2 % (20.0-40.0); MEAN CELL VOLUME 70.9 fL (81.0-99.0); MEAN CORPUSCULAR HEMOGLOBIN 22.3 pg (27.0-31.0); MEAN CORPUSCULAR HGB CONC 31.4 g/dL (33.0-37.0); MEAN PLATELET VOLUME 9.7 fL (7.2-11.7); MONO # 0.6 K/uL (0.0-0.8); MONO % 10.7 % (0.0-10.0); NEUT # 2.8 K/uL (1.8-7.0); NEUT % 52.1 % (50.0-75.0); NRBC % 0.2 % (0.0-2.0); RBC 4.25 Mil/uL (3.80-5.20); RED CELL DISTRIBUTION WIDTH 26.9 % (11.5-14.5); WHITE BLOOD COUNT 5.4 K/uL (4.8-10.8)
[2017-11-01 08:51] LABS: ALB/GLOB RATIO 1.4 (1.0-2.1); ALBUMIN 4.1 g/dL (3.5-5.0); ALT/SGPT 70 U/L (9-52); AST/SGOT 55 U/L (14-36); BLOOD UREA NITROGEN 7 mg/dL (7-17); CALCIUM 9.2 mg/dl (8.6-10.4); GFR NON-AFRICAN AMERICAN > 60
[2017-11-01] MEDS: Pantoprazole 40 mg EC Tab PO SCH (09:44)
[2017-11-01 11:06] LABS: HEPATITIS B SURFACE AG Negative (NEGATIVE)
[2017-11-01 11:12] LABS: HEPATITIS A IGM NEGATIVE (NEGATIVE); HEPATITIS B CORE AB NEGATIVE (NEGATIVE)
[2017-11-01 11:24] LABS: HEPATITIS C ANTIBODY NEGATIVE (NEGATIVE)
--- NOTE | 2017-11-01 15:38 | CP.PCM.PN ---
Subjective - Date & Time of Evaluation Date of Evaluation: 11/01/17 Time of Evaluation: 08:30 - Subjective Subjective: clinically same Objective - Vital Signs/Intake and Output Vital Signs (last 24 hours): Temp Pulse Resp BP Pulse Ox 98.0 F 68 20 108/71 100 11/01/17 15:33 11/01/17 15:33 11/01/17 15:33 11/01/17 15:33 11/01/17 15:33 Intake and Output: 11/01/17 11/01/17 06:59 18:59 Intake Total 350 360 Balance 350 360 - Medications Medications: Current Medications Ferrous Sulfate (Feosol) 325 mg PO DAILY [facility] Last Admin: 11/01/17 09:44 Dose: 325 mg Ferric Sodium Gluconate Complex 125 mg/ Sodium Chloride 110 mls @ 110 mls/hr IVPB HS [facility] Stop: 11/07/17 22:01 Last Admin: 10/31/17 22:23 Dose: 110 mls/hr Pantoprazole Sodium (Protonix Ec Tab) 40 mg PO DAILY [facility] Last Admin: 11/01/17 09:44 Dose: 40 mg - Labs Labs: 11/01/17 08:16 11/01/17 08:16 - Constitutional Appears: Well - Head Exam Head Exam: ATRAUMATIC, NORMAL INSPECTION, NORMOCEPHALIC - Eye Exam Eye Exam: EOMI, Normal appearance, PERRL Pupil Exam: NORMAL ACCOMODATION, PERRL - ENT Exam ENT Exam: Mucous Membranes Moist, Normal Exam - Neck Exam Neck Exam: Full ROM, Normal Inspection. absent: Lymphadenopathy - Respiratory Exam Respiratory Exam: Decreased Breath Sounds - Cardiovascular Exam Cardiovascular Exam: REGULAR RHYTHM, +S1, +S2 - GI/Abdominal Exam GI & Abdominal Exam: Soft, Diminished Bowel Sounds - Rectal Exam Rectal Exam: Deferred
[2017-11-01] MEDS: Ferric Sodium Gluconat Complex 125 MG in Sodium Chloride 0.9% 100 ML IVPB SCH (22:10)
[2017-11-02] MEDS: Pantoprazole 40 mg EC Tab PO SCH (09:06)
[2017-11-02 15:56] VITALS: BP 97/61; PULSE 78; TEMP 97.2; O2SAT 99
--- NOTE | 2017-11-02 15:56 | CP.PCM.PN ---
Subjective - Date & Time of Evaluation Date of Evaluation: 11/02/17 Time of Evaluation: 08:00 - Subjective Subjective: clinically same Objective - Vital Signs/Intake and Output Vital Signs (last 24 hours): Temp Pulse Resp BP Pulse Ox 98.0 F 62 20 97/63 L 98 11/02/17 08:00 11/02/17 08:00 11/02/17 08:00 11/02/17 08:00 11/02/17 08:00 Intake and Output: 11/02/17 11/02/17 06:59 18:59 Intake Total 650 400 Balance 650 400 - Medications Medications: Current Medications Ferrous Sulfate (Feosol) 325 mg PO DAILY [facility] Last Admin: 11/02/17 09:06 Dose: 325 mg Ferric Sodium Gluconate Complex 125 mg/ Sodium Chloride 110 mls @ 110 mls/hr IVPB HS [facility] Stop: 11/07/17 22:01 Last Admin: 11/01/17 22:10 Dose: 110 mls/hr Pantoprazole Sodium (Protonix Ec Tab) 40 mg PO DAILY [facility] Last Admin: 11/02/17 09:06 Dose: 40 mg - Labs Labs: 11/01/17 08:16 11/01/17 08:16 - Constitutional Appears: Well - Head Exam Head Exam: ATRAUMATIC, NORMAL INSPECTION, NORMOCEPHALIC - Eye Exam Eye Exam: EOMI, Normal appearance, PERRL Pupil Exam: NORMAL ACCOMODATION, PERRL - ENT Exam ENT Exam: Mucous Membranes Moist, Normal Exam - Neck Exam Neck Exam: Full ROM, Normal Inspection. absent: Lymphadenopathy - Respiratory Exam Respiratory Exam: Decreased Breath Sounds - Cardiovascular Exam Cardiovascular Exam: REGULAR RHYTHM, +S1, +S2 - GI/Abdominal Exam GI & Abdominal Exam: Soft, Diminished Bowel Sounds - Rectal Exam Rectal Exam: Deferred
--- NOTE | 2017-11-02 17:33 | CP.PCM.PN ---
Subjective - Date & Time of Evaluation Date of Evaluation: 11/02/17 Time of Evaluation: 11:00 - Subjective Subjective: Alert and oriented x3 no sob or chest pains. Objective - Vital Signs/Intake and Output Vital Signs (last 24 hours): Temp Pulse Resp BP Pulse Ox 97.2 F L 78 20 97/61 L 99 11/02/17 15:55 11/02/17 15:55 11/02/17 15:55 11/02/17 15:55 11/02/17 15:55 Intake and Output: 11/02/17 11/02/17 06:59 18:59 Intake Total 650 400 Balance 650 400 - Medications Medications: Current Medications Ferrous Sulfate (Feosol) 325 mg PO DAILY [facility] Last Admin: 11/02/17 09:06 Dose: 325 mg Ferric Sodium Gluconate Complex 125 mg/ Sodium Chloride 110 mls @ 110 mls/hr IVPB HS [facility] Stop: 11/07/17 22:01 Last Admin: 11/01/17 22:10 Dose: 110 mls/hr Pantoprazole Sodium (Protonix Ec Tab) 40 mg PO DAILY [facility] Last Admin: 11/02/17 09:06 Dose: 40 mg - Labs Labs: 11/01/17 08:16 11/01/17 08:16 Assessment and Plan - Assessment and Plan (Free Text) Assessment: 37 year old female admitted with hemoglobin 6.0, seen and examined. Alert and orientedx3, ambulating well. Denies sob or chest pains. Cleared by the [employer], discussed with DR Felisha Christian, plan to discharge home and follow up with [employer] as out patient. Advised to follow up in the office in 1 week.
--- NOTE | 2017-11-02 20:12 | CP.PCM.PN ---
Subjective - Date & Time of Evaluation Date of Evaluation: 10/31/17 Time of Evaluation: 11:00 - Subjective Subjective: Feeling better s/p PRBC transfusion Objective - Vital Signs/Intake and Output Vital Signs (last 24 hours): Temp Pulse Resp BP Pulse Ox 97.2 F L 78 20 97/61 L 99 11/02/17 15:55 11/02/17 15:55 11/02/17 15:55 11/02/17 15:55 11/02/17 15:55 Intake and Output: 11/02/17 11/03/17 18:59 06:59 Intake Total 400 Balance 400 - Labs Labs: 11/01/17 08:16 11/01/17 08:16 - Head Exam Head Exam: ATRAUMATIC - Eye Exam Eye Exam: Normal appearance - ENT Exam ENT Exam: Mucous Membranes Dry - Respiratory Exam Respiratory Exam: NORMAL BREATHING PATTERN - Cardiovascular Exam Cardiovascular Exam: +S1, +S2 - GI/Abdominal Exam GI & Abdominal Exam: Normal Bowel Sounds Assessment and Plan (1) Symptomatic anemia Assessment & Plan: work up consistent with iron deficiency anemia secondary to dysfunction uterine bleeding s/p 2U PRBC on IV iron [employer] f/u Status: Acute (2) Thrombocytopenia Assessment & Plan: mild likely consumptive from chronic bleeding f/u HIV and hepatitis panel Status: Acute
--- NOTE | 2017-11-02 20:13 | CP.PCM.PN ---
Subjective - Date & Time of Evaluation Date of Evaluation: 11/01/17 Time of Evaluation: 12:00 - Subjective Subjective: Feeling better Objective - Vital Signs/Intake and Output Vital Signs (last 24 hours): Temp Pulse Resp BP Pulse Ox 97.2 F L 78 20 97/61 L 99 11/02/17 15:55 11/02/17 15:55 11/02/17 15:55 11/02/17 15:55 11/02/17 15:55 Intake and Output: 11/02/17 11/03/17 18:59 06:59 Intake Total 400 Balance 400 - Labs Labs: 11/01/17 08:16 11/01/17 08:16 - Head Exam Head Exam: ATRAUMATIC - Eye Exam Eye Exam: Normal appearance - ENT Exam ENT Exam: Mucous Membranes Dry - Respiratory Exam Respiratory Exam: NORMAL BREATHING PATTERN - Cardiovascular Exam Cardiovascular Exam: +S1, +S2 - GI/Abdominal Exam GI & Abdominal Exam: Normal Bowel Sounds Assessment and Plan (1) Symptomatic anemia Assessment & Plan: work up consistent with iron deficiency anemia secondary to dysfunction uterine bleeding s/p 2U PRBC on IV iron [employer] f/u Status: Acute (2) Thrombocytopenia Assessment & Plan: mild likely consumptive from chronic bleeding Status: Acute
--- NOTE | 2017-11-02 20:14 | CP.PCM.PN ---
Subjective - Date & Time of Evaluation Date of Evaluation: 11/02/17 Time of Evaluation: 13:00 - Subjective Subjective: Feeling better Objective - Vital Signs/Intake and Output Vital Signs (last 24 hours): Temp Pulse Resp BP Pulse Ox 97.2 F L 78 20 97/61 L 99 11/02/17 15:55 11/02/17 15:55 11/02/17 15:55 11/02/17 15:55 11/02/17 15:55 Intake and Output: 11/02/17 11/03/17 18:59 06:59 Intake Total 400 Balance 400 - Labs Labs: 11/01/17 08:16 11/01/17 08:16 - Head Exam Head Exam: ATRAUMATIC - Eye Exam Eye Exam: Normal appearance - ENT Exam ENT Exam: Mucous Membranes Dry - Respiratory Exam Respiratory Exam: NORMAL BREATHING PATTERN - Cardiovascular Exam Cardiovascular Exam: +S1, +S2 - GI/Abdominal Exam GI & Abdominal Exam: Normal Bowel Sounds Assessment and Plan (1) Symptomatic anemia Assessment & Plan: work up consistent with iron deficiency anemia secondary to dysfunction uterine bleeding s/p 2U PRBC on IV iron [employer]PER[employer] f/u Status: Acute (2) Thrombocytopenia Assessment & Plan: mild likely consumptive from chronic bleeding Status: Acute
== END 2017-11-02 18:29 | disposition home or self-care (01) | DRG 395 ==
LOC: C.ER 16:33 → C.9E 18:15 → C.3T 21:00
PROVIDERS: ADMIT Internal Medicine Nephrology; ATTEND Internal Medicine Nephrology
PROC: 30233N1 Transfusion of Nonautologous Red Blood Cells into Peripheral Vein, Percutaneous Approach (ICD-10-PCS; principal; 2017-10-29)
DX: D50.0 Iron deficiency anemia secondary to blood loss (chronic) (principal); N93.8 Other specified abnormal uterine and vaginal bleeding; D69.6 Thrombocytopenia, unspecified; N80.9 Endometriosis, unspecified; Q51.2 Other doubling of uterus; Z98.891 History of uterine scar from previous surgery

== ENCOUNTER 2018-06-26 10:50 | Observation (INO) | payer OTHER ==
[2018-06-26 10:51] VITALS: BMI 21.4
[2018-06-26] MEDS ORDERED: Iohexol 240 (50 ml) PO STA (11:18)
[2018-06-26] MEDS ORDERED: Sodium Chloride 0.9% 1,000 ML IV ONE (11:18)
[2018-06-26] MEDS ORDERED: Sodium Chloride 0.9% 1,000 ML ONE (11:18)
[2018-06-26 11:24] LABS: BASO # 0.1 K/uL (0.0-0.2); BASO % 0.8 % (0.0-2.0); EOS % 0.3 % (0.0-4.0); LYMPH # 1.3 K/uL (1.0-4.3); LYMPH % 12.3 % (20.0-40.0); MEAN CELL VOLUME 67.6 fL (81.0-99.0); MEAN CORPUSCULAR HEMOGLOBIN 20.8 pg (27.0-31.0); MEAN CORPUSCULAR HGB CONC 30.8 g/dL (33.0-37.0); MEAN PLATELET VOLUME 10.1 fL (7.2-11.7); MONO % 9.6 % (0.0-10.0); NRBC % 0.3 % (0.0-2.0); RBC 2.51 Mil/uL (3.80-5.20); RED CELL DISTRIBUTION WIDTH 19.3 % (11.5-14.5); WHITE BLOOD COUNT 10.5 K/uL (4.8-10.8)
[2018-06-26] MEDS ORDERED: Iohexol 240 (50 ml) ONE (11:24)
--- NOTE | 2018-06-26 11:27 | C.PDOC ---
History Of Present Illness 38 years old female with PMHx of ectopic with left oophorectomy, presents to ED for complaints of vaginal bleeding with clots that began 3 weeks ago. Patient reports 4-5 pads a day. Patient also reports LLQ abdominal pain that began 1 week ago and is now diffuse. Patient states episodes of nausea and vomiting that began 2 days ago as well and urinary symptoms. Denies fever, current , or any other complaints. Time Seen by Provider: 06/26/18 11:04 Chief Complaint (Nursing): Female Genitourinary History Per: Patient History/Exam Limitations: no limitations Onset/Duration Of Symptoms: Days Current Symptoms Are (Timing): Still Present Associated Symptoms: Nausea, Vomiting, Urinary Symptoms. denies: Fever, Chills Alleviating Factors: None Recent travel outside of the [place]: No Abnormal Vaginal Bleeding: Yes Past Medical History Reviewed: Historical Data, Nursing Documentation, Vital Signs Vital Signs: Last Vital Signs Temp 97.4 F L 06/26/18 10:54 Pulse 82 06/26/18 10:54 Resp 14 06/26/18 11:16 BP 109/76 06/26/18 10:54 Pulse Ox 100 06/26/18 11:16 - Medical History PMH: Anemia Denies: Chronic Kidney Disease Surgical History: - [facility] Procedures TRANSFUSE NONAUT RED BLOOD CELLS IN PERIPH VEIN, PERC (10/29/17) Family History: States: Unknown Family Hx - Social History Hx Alcohol Use: No Hx Substance Use: No - Immunization History Hx Tetanus Toxoid Vaccination: No Hx Influenza Vaccination: No Hx Pneumococcal Vaccination: No Review Of Systems Constitutional: Negative for: Fever, Chills Gastrointestinal: Positive for: Nausea, Vomiting, Abdominal Pain (Diffuse ) Genitourinary: Positive for: Vaginal Bleeding (With clots ), Other (Urinary symptoms ) Skin: Negative for: Rash Neurological: Negative for: Weakness, Numbness Physical Exam - Physical Exam Appears: Non-toxic, No Acute Distress, Other (Pale) Skin: Warm, Dry, Pale, No Rash, Other (Mildly jaundiced ) Head: Atraumatic, Normacephalic Eye(s): bilateral: Normal Inspection, PERRL, EOMI, Conjunctiva Pale Oral Mucosa: Dry Neck: Normal ROM, Supple Chest: Symmetrical, No Tenderness Cardiovascular: Rhythm Regular Respiratory: Normal Breath Sounds, No Rales, No Rhonchi, No Wheezing Gastrointestinal/Abdominal: Bowel Sounds (Hypoactive ), Soft, Tenderness (Diffuse. Worse in left and lower quadrants. ) Extremity: Normal ROM Extremity: Bilateral: Atraumatic, Normal Color And Temperature, Normal ROM Pulses: Left Radial: Normal, Right Radial: Normal Neurological/Psych: Oriented x3, Normal Speech, Normal Cognition Gait: Steady ED Course And Treatment - Laboratory Results Result Diagrams: 06/26/18 11:16 06/26/18 11:16 O2 Sat by Pulse Oximetry: 100 (RA) Pulse Ox Interpretation: Normal - CT Scan/US Abdomen/Pelvis CT Other Rad Studies (CT/US): Read By Radiologist, Radiology Report Reviewed CT/US Interpretation: IMPRESSION: No acute abnormality. 1.9 cm rounded low- density structure in the posterior cervix, possible nabothian cyst. Minimal nonspecific fluid in cul-de-sac. Probable uterine fibroid. Otherwise unrem arkable. Medical Decision Making Medical Decision Making: Plan: * BBK * CT Abdomen/Pelvis * Blood work * Urine Culture * Urinalysis * IV Fluids * Zofran Patient states she has had blood transfusions in the past for similar complaints. DISCUSSED WITH dR Diamond Lala, CONSLT REQUESTED. [id number] Hayden Christian; will admit to his service. Dr Flaherty for surgery if needed; depends on ct scan result. Disposition Discussed With Dr.: Lenin Christian Doctor Will See Patient In The: Hospital - Disposition Disposition: HOSPITALIZED Disposition Time: 13:31 Condition: STABLE - Clinical Impression Clinical Impression: DUB (dysfunctional uterine bleeding), Symptomatic anemia, Abdominal pain - PA / QUALITY ASSURANCE TECH / Resident Statement MD/DO has reviewed & agrees with the documentation as recorded. - Scribe Statement The provider has reviewed the documentation as recorded by the Heatheribleila Garvin All medical record entries made by the Mehdi were at my direction and personally dictated by me. I have reviewed the chart and agree that the record accurately reflects my personal performance of the history, physical exam, medical decision making, and the department course for this patient. I have also personally directed, reviewed, and agree with the discharge instructions and disposition.
[2018-06-26 11:33] LABS: HEMOGLOBIN 5.2 g/dL (11.0-16.0)
[2018-06-26 12:15] LABS: ALB/GLOB RATIO 1.4 (1.0-2.1); ALBUMIN 4.2 g/dL (3.5-5.0); ALT/SGPT 17 U/L (9-52); AST/SGOT 23 U/L (14-36); BLOOD UREA NITROGEN 11 mg/dL (7-17); CALCIUM 9.3 mg/dl (8.6-10.4); GFR NON-AFRICAN AMERICAN > 60
[2018-06-26 12:58] LABS: URINE AMORPHOUS SEDIMENT MODERATE /ul (<OCC); URINE BACTERIA FEW (<OCC); URINE BILIRUBIN NEGATIVE (NEGATIVE); URINE BLOOD 3+ (NEGATIVE); URINE CLARITY Turbid (Clear); URINE COLOR Yellow (YELLOW); URINE GLUCOSE (UA) NORMAL (Normal); URINE LEUKOCYTE ESTERASE NEG Leu/uL (Negative); URINE PROTEIN 1+ mg/dL (NEGATIVE); URINE UROBILINOGEN NORMAL mg/dL (0.2-1.0)
[2018-06-26] MEDS ORDERED: Iodixanol 320 MG/ML 100 ML BOTTLE IV ONE (13:39)
--- NOTE | 2018-06-26 14:29 | CT ---
Date of service: 06/26/2018 PROCEDURE: CT Abdomen and Pelvis with contrast HISTORY: diffuse abdominal pain, vomiting COMPARISON: None. TECHNIQUE: Contrast dose: 100 mL Visipaque 320 Radiation dose: Total exam DLP = 315.55 mGy-cm. This CT exam was performed using one or more of the following dose reduction techniques: Automated exposure control, adjustment of the mA and/or kV according to patient size, and/or use of iterative reconstruction technique. FINDINGS: LOWER THORAX: Unremarkable. LIVER: Unremarkable. No gross lesion or ductal dilatation. GALLBLADDER AND BILE DUCTS: Unremarkable. PANCREAS: Unremarkable. No gross lesion or ductal dilatation. SPLEEN: Unremarkable. ADRENALS: Unremarkable. No mass. KIDNEYS AND URETERS: Unremarkable. No hydronephrosis. No solid mass. VASCULATURE: Unremarkable. No aortic aneurysm. No aortic atherosclerotic calcification or mural plaque present. BOWEL: Unremarkable. No obstruction. No gross mural thickening. APPENDIX: Not definitely identified. No secondary findings to suggest acute appendicitis. PERITONEUM: Minimal fluid in the cul-de-sac. LYMPH NODES: Unremarkable. No enlarged lymph nodes. BLADDER: Unremarkable. REPRODUCTIVE: There may be a sub septate uterus. There is probable fundal uterine fibroid as demonstrated on prior ultrasound of 08/25/2017. rounded low-density structure in the posterior cervix, approximately 1.9 cm diameter. Possible nabothian cyst. BONES: No acute fracture. OTHER FINDINGS: None. IMPRESSION: No acute abnormality. 1.9 cm rounded low-density structure in the posterior cervix, possible nabothian cyst. Minimal nonspecific fluid in cul-de-sac. Probable uterine fibroid. Otherwise unremarkable.
[2018-06-26] MEDS ORDERED: Ferric Sodium Gluconat Complex 62.5 mg/5 ml Vial IVPB SCH (14:30)
[2018-06-26] MEDS ORDERED: Ferric Sodium Gluconat Complex 125 MG in Sodium Chloride 0.9% 100 ML IVPB ONE (15:30)
--- NOTE | 2018-06-26 19:33 | CP.PCM.HP ---
History of Present Illness - History of Present Illness History of Present Illness: Patient's again 38-year-old female with history of ectopic with left oophorectomy presents to the emergency room because of severe vaginal bleeding with clots for 3 weeks with the sodium reported with hemoglobin of 5.2 eventu ally decided to admit the patient patient appears very pale and mildly short of breath with the left lower quadrant abdominal pain and discussed with the ER staff and decided to call PORTFOLIO ACCOUNTANT stat to see the patient's patient's I was also hospitalized before patient claims that she has mild nausea and vomiting patient for the same underwent a CAT scan of the abdomen which revealed no acute abnormality except 1.9cm rounded low-density structure in the posterior cervix most likely nabothian cyst with minimal nonspecific fluid in cul-de-sac Probable uterine fibroid No fever No headache No chest pain No sweating Present on Admission - Present on Admission Any Indicators Present on Admission: No Past Patient History - Tetanus Immunizations Tetanus Immunization: Unknown - Past Medical History & Family History Past Medical History?: Yes - Past Social History Smoking Status: Never Smoked - CARDIAC Hx Cardiac Disorders: No - PULMONARY Hx Respiratory Disorders: No - NEUROLOGICAL Hx Neurological Disorder: Yes Hx Dizziness: Yes Other/Comment: Gonzalez's palsy - HEENT Hx HEENT Problems: No - RENAL Hx Chronic Kidney Disease: No - ENDOCRINE/METABOLIC Hx Endocrine Disorders: No - HEMATOLOGICAL/ONCOLOGICAL Hx Anemia: Yes - INTEGUMENTARY Hx Dermatological Problems: No - MUSCULOSKELETAL/RHEUMATOLOGICAL Hx Falls: No - GASTROINTESTINAL Hx Constipation: Yes - GENITOURINARY/GYNECOLOGICAL Hx Genitourinary Disorders: Yes Hx Reproductive Disorders: Yes Other/Comment: Uterus didelphys; endometriosis - PSYCHIATRIC Hx Substance Use: No - SURGICAL HISTORY Hx Surgeries: Yes Hx Section: Yes Other/Comment: Ectopic 2001 S/P surgery - ANESTHESIA Hx Anesthesia: Yes Hx Anesthesia Reactions: No Meds Allergies/Adverse Reactions: Allergies Allergy/AdvReac Type Severity Reaction Status Date / Time No Known Allergies Allergy Verified 06/26/18 10:57 Physical Exam - Constitutional Appears: Well - Head Exam Head Exam: ATRAUMATIC, NORMAL INSPECTION, NORMOCEPHALIC - Eye Exam Eye Exam: EOMI, Normal appearance, PERRL Pupil Exam: NORMAL ACCOMODATION, PERRL - ENT Exam ENT Exam: Mucous Membranes Moist, Normal Exam - Neck Exam Neck exam: Positive for: Normal Inspection - Respiratory Exam Respiratory Exam: Decreased Breath Sounds - Cardiovascular Exam Cardiovascular Exam: REGULAR RHYTHM, +S1, +S2 - GI/Abdominal Exam GI & Abdominal Exam: Diminished Bowel Sounds, Soft - Rectal Exam Rectal Exam: Deferred - Neurological Exam Neurological exam: Oriented x3 Results - Vital Signs Recent Vital Signs: Last Vital Signs Temp 100.2 F H 06/26/18 19:15 Pulse 94 H 06/26/18 19:15 Resp 20 06/26/18 19:15 BP 95/60 L 06/26/18 19:15 Pulse Ox 100 06/26/18 19:15 - Labs Result Diagrams: 06/26/18 11:16 06/26/18 11:16 Labs: Laboratory Results - last 24 hr 06/26/18 06/26/18 06/26/18 11:16 11:16 11:16 WBC 10.5 D RBC 2.51 L Hgb 5.2 L* D Hct 17.0 L MCV 67.6 L D MCH 20.8 L MCHC 30.8 L RDW 19.3 H Plt Count 137 MPV 10.1 Neut % (Auto) 77.0 H Lymph % (Auto) 12.3 L [place] % (Auto) 9.6 Eos % (Auto) 0.3 Baso % (Auto) 0.8 Neut # (Auto) 8.0 H Lymph # (Auto) 1.3 [place] # (Auto) 1.0 H Eos # (Auto) 0.0 Baso # (Auto) 0.1 Sodium 138 Potassium 3.6 Chloride 102 Carbon Dioxide 25 Anion Gap 14 BUN 11 Creatinine 0.6 L Est GFR ( Amer) > 60 Est GFR (Non-Af Amer) > 60 Random Glucose 129 H D Calcium 9.3 Total Bilirubin 0.9 AST 23 ALT 17 Alkaline Phosphatase 69 Total Protein 7.3 Albumin 4.2 Globulin 3.1 Albumin/Globulin Ratio 1.4 Beta HCG, Quant < 2.39 Urine Color Urine Clarity Urine pH Ur Specific [place]tha Urine Protein Urine Glucose (UA) Urine Ketones Urine Blood Urine Nitrate Urine Bilirubin Urine Urobilinogen Ur Leukocyte Esterase Urine RBC (Auto) Amorphous Sediment Urine Bacteria Blood Type O POSITIVE Antibody Screen Negative 06/26/18 12:15 WBC RBC Hgb Hct MCV MCH MCHC RDW Plt Count MPV Neut % (Auto) Lymph % (Auto) [place] % (Auto) Eos % (Auto) Baso % (Auto) Neut # (Auto) Lymph # (Auto) [place] # (Auto) Eos # (Auto) Baso # (Auto) Sodium Potassium Chloride Carbon Dioxide Anion Gap BUN Creatinine Est GFR ( Amer) Est GFR (Non-Af Amer) Random Glucose Calcium Total Bilirubin AST ALT Alkaline Phosphatase Total Protein Albumin Globulin Albumin/Globulin Ratio Beta HCG, Quant Urine Color Yellow Urine Clarity Turbid Urine pH 5.0 Ur Specific [place]tha 1.026 Urine Protein 1+ H Urine Glucose (UA) Normal Urine Ketones Trace Urine Blood 3+ H Urine Nitrate Negative Urine Bilirubin Negative Urine Urobilinogen Normal Ur Leukocyte Esterase Neg Urine RBC (Auto) 238 H Amorphous Sediment Moderate H Urine Bacteria Few H Blood Type Antibody Screen Assessment & Plan - Assessment and Plan (Free Text) Plan: Plan CBC CMP Status post CT abdomen GREAS[facility] HELPER Heme-onc Urine culture Urinalysis IV fluid Zofran Her 2 units of PRBCs after consent CBC CMP tomorrow morning Regular diet As ordered
--- NOTE | 2018-06-27 00:47 | CP.PCM.CON ---
History of Present Illness - History of Present Illness History of Present Illness: 38 years old female with PMHx of ectopic with left oophorectomy, presents to ED for complaints of vaginal bleeding with clots that began 3 weeks ago. Patient reports 4-5 pads a day. Patient also reports LLQ abdminal pain that began 1 week ago and is now diffuse. Patient states episodes of nausea and vomiting that began 2 days ago as well and urinary symptoms. Today pts hemoglobin was 5.2. Pt was admitted for blood transfusion. [facility]ER consulted d/t history of Fibroids. Pt was seen and admitted for the same issue a few months ago (10/29/17) and was given a transfusion at that time as well. Pt states that she was supposed to have "surgery" for her fibroids with Dr. Potter her private [facility] physician. She states that her insurance . She did state that her insurance will be reinstated in a few days and will see her private [facility]IL SPOT WASHER for further care/surgery. PHMX: FIBROIDS., DIDELPHYIS UTERUS. Past Patient History - Tetanus Immunizations Tetanus Immunization: Unknown - Past Medical History & Family History Past Medical History?: Yes - Past Social History Smoking Status: Never Smoked - CARDIAC Hx Cardiac Disorders: No - PULMONARY Hx Respiratory Disorders: No - NEUROLOGICAL Hx Neurological Disorder: Yes Hx Dizziness: Yes Other/Comment: Gonzalez's palsy - HEENT Hx HEENT Problems: No - RENAL Hx Chronic Kidney Disease: No - ENDOCRINE/METABOLIC Hx Endocrine Disorders: No - HEMATOLOGICAL/ONCOLOGICAL Hx Anemia: Yes - INTEGUMENTARY Hx Dermatological Problems: No - MUSCULOSKELETAL/RHEUMATOLOGICAL Hx Falls: No - GASTROINTESTINAL Hx Constipation: Yes - GENITOURINARY/GYNECOLOGICAL Hx Genitourinary Disorders: Yes Hx Reproductive Disorders: Yes Other/Comment: Uterus didelphys; endometriosis - PSYCHIATRIC Hx Substance Use: No - SURGICAL HISTORY Hx Surgeries: Yes Hx Section: Yes Other/Comment: Ectopic 2001 S/P surgery - ANESTHESIA Hx Anesthesia: Yes Hx Anesthesia Reactions: No Meds Allergies/Adverse Reactions: Allergies Allergy/AdvReac Type Severity Reaction Status Date / Time No Known Allergies Allergy Verified 06/26/18 10:57 - Medications Medications: Current Medications Ferric Sodium Gluconate Complex (Ferrlecit) 125 mg IVPB DAILY [facility] Stop: 07/05/18 10:01 Ferrous Sulfate (Feosol) 325 mg PO DAILY [facility] Last Admin: 06/26/18 15:06 Dose: 325 mg Ketorolac Tromethamine (Toradol) 15 mg IVP Q8 PRN PRN Reason: Pain, moderate (4-7) Last Admin: 06/26/18 17:19 Dose: 15 mg Pantoprazole Sodium (Protonix Ec Tab) 40 mg PO DAILY [facility] Physical Exam - Constitutional Appears: Well, Non-toxic - Head Exam Head Exam: ATRAUMATIC, NORMAL INSPECTION - Eye Exam Eye Exam: Normal appearance - ENT Exam ENT Exam: Mucous Membranes Moist, Normal Exam - Neck Exam Neck exam: Positive for: Normal Inspection - GI/Abdominal Exam GI & Abdominal Exam: absent: Bruit, Diminished Bowel Sounds, Distended, Firm, Guarding, Hernia, Hyperactive Bowel Sounds, Hypoactive Bowel Sounds, Mass, No rmal Bowel Sounds, Organomegaly, Pulsatile Mass, Rebound, Rigid, Soft, Tenderness - Rectal Exam Rectal Exam: Deferred - Exam External exam: NORMAL EXTERNAL EXAM Results - Vital Signs Recent Vital Signs: Last Vital Signs Temp 98.9 F 06/26/18 20:40 Pulse 94 H 06/26/18 19:15 Resp 20 06/26/18 19:15 BP 95/60 L 06/26/18 19:15 Pulse Ox 100 06/26/18 19:15 - Labs Result Diagrams: 06/26/18 11:16 06/26/18 11:16 Labs: Laboratory Results - last 24 hr 06/26/18 06/26/18 06/26/18 11:16 11:16 11:16 WBC 10.5 D RBC 2.51 L Hgb 5.2 L* D Hct 17.0 L MCV 67.6 L D MCH 20.8 L MCHC 30.8 L RDW 19.3 H Plt Count 137 MPV 10.1 Neut % (Auto) 77.0 H Lymph % (Auto) 12.3 L [place] % (Auto) 9.6 Eos % (Auto) 0.3 Baso % (Auto) 0.8 Neut # (Auto) 8.0 H Lymph # (Auto) 1.3 [place] # (Auto) 1.0 H Eos # (Auto) 0.0 Baso # (Auto) 0.1 Sodium 138 Potassium 3.6 Chloride 102 Carbon Dioxide 25 Anion Gap 14 BUN 11 Creatinine 0.6 L Est GFR ( Amer) > 60 Est GFR (Non-Af Amer) > 60 Random Glucose 129 H D Calcium 9.3 Total Bilirubin 0.9 AST 23 ALT 17 Alkaline Phosphatase 69 Total Protein 7.3 Albumin 4.2 Globulin 3.1 Albumin/Globulin Ratio 1.4 Beta HCG, Quant < 2.39 Urine Color Urine Clarity Urine pH Ur Specific [place] Urine Protein Urine Glucose (UA) Urine Ketones Urine Blood Urine Nitrate Urine Bilirubin Urine Urobilinogen Ur Leukocyte Esterase Urine RBC (Auto) Amorphous Sediment Urine Bacteria Blood Type O POSITIVE Antibody Screen Negative 06/26/18 12:15 WBC RBC Hgb Hct MCV MCH MCHC RDW Plt Count MPV Neut % (Auto) Lymph % (Auto) [place] % (Auto) Eos % (Auto) Baso % (Auto) Neut # (Auto) Lymph # (Auto) [place] # (Auto) Eos # (Auto) Baso # (Auto) Sodium Potassium Chloride Carbon Dioxide Anion Gap BUN Creatinine Est GFR ( Amer) Est GFR (Non-Af Amer) Random Glucose Calcium Total Bilirubin AST ALT Alkaline Phosphatase Total Protein Albumin Globulin Albumin/Globulin Ratio Beta HCG, Quant Urine Color Yellow Urine Clarity Turbid Urine pH 5.0 Ur Specific [place] 1.026 Urine Protein 1+ H Urine Glucose (UA) Normal Urine Ketones Trace Urine Blood 3+ H Urine Nitrate Negative Urine Bilirubin Negative Urine Urobilinogen Normal Ur Leukocyte Esterase Neg Urine RBC (Auto) 238 H Amorphous Sediment Moderate H Urine Bacteria Few H Blood Type Antibody Screen Assessment & Plan - Assessment and Plan (Free Text) Assessment: 38 with symptomatic anemia presents to the ER with complaints of dizziness and vaginal bleeding 1) VSS afebrile. 2) continue blood transfusion per protocol 3) Vaginal bleeding: consider Tranexamic acid 10mg/kg IV q8 hours to stop bleeding - maximum 600mg/dose while admitted 4) Outpatient management: Medroxyprogesterone acetate 20mg po TID x 7 days on discharge to stop bleeding. 5) follow up with her OIL SPOT W[employer]ER for surgical treatment.
[2018-06-27] MEDS ORDERED: Sodium Chloride 0.9% 500 ML IV ONE (01:24)
[2018-06-27] MEDS: Pantoprazole 40 mg EC Tab PO SCH (10:20)
[2018-06-27] MEDS: Ferric Sodium Gluconat Complex 62.5 mg/5 ml Vial IVPB SCH (10:20)
[2018-06-27 12:11] LABS: EOS # 0.1 K/uL (0.0-0.7); MEAN CORPUSCULAR HGB CONC 32.8 g/dL (33.0-37.0); NEUT # 4.2 K/uL (1.8-7.0); NRBC % 0.2 % (0.0-2.0)
[2018-06-27 12:17] LABS: BASO # 0.1 K/uL (0.0-0.2); BASO % 0.8 % (0.0-2.0); EOS % 0.7 % (0.0-4.0); HEMOGLOBIN 7.7 g/dL (11.0-16.0); LYMPH # 2.1 K/uL (1.0-4.3); LYMPH % 28.8 % (20.0-40.0); MEAN CORPUSCULAR HEMOGLOBIN 24.6 pg (27.0-31.0); MEAN PLATELET VOLUME 10.7 fL (7.2-11.7); MONO # 0.9 K/uL (0.0-0.8); MONO % 11.9 % (0.0-10.0); NEUT % 57.8 % (50.0-75.0); RBC 3.11 Mil/uL (3.80-5.20); WHITE BLOOD COUNT 7.4 K/uL (4.8-10.8)
[2018-06-27 12:48] LABS: ALB/GLOB RATIO 1.2 (1.0-2.1); ALBUMIN 3.3 g/dL (3.5-5.0); ALT/SGPT 24 U/L (9-52); AST/SGOT 22 U/L (14-36); BLOOD UREA NITROGEN 8 mg/dL (7-17); CALCIUM 8.3 mg/dl (8.6-10.4); GFR NON-AFRICAN AMERICAN > 60
[2018-06-27 13:11] LABS: FERRITIN 7.2 ng/mL
[2018-06-27 13:41] LABS: FOLATE 12.9 ng/mL
--- NOTE | 2018-06-27 18:52 | CP.PCM.PN ---
Subjective - Date & Time of Evaluation Date of Evaluation: 06/27/18 - Subjective Subjective: patient examined today no nausea no vomiting no fever no dizziness no sob no diarrhea Objective - Vital Signs/Intake and Output Vital Signs (last 24 hours): Temp Pulse Resp BP Pulse Ox 98 F 76 18 94/60 L 100 06/27/18 18:37 06/27/18 18:37 06/27/18 18:37 06/27/18 18:37 06/27/18 16:43 Intake and Output: 06/27/18 06/27/18 06:59 18:59 Intake Total 375 580 Balance 375 580 - Medications Medications: Current Medications Ferric Sodium Gluconate Complex (Ferrlecit) 125 mg IVPB DAILY [facility] Stop: 07/05/18 10:01 Last Admin: 06/27/18 10:20 Dose: 125 mg Ferrous Sulfate (Feosol) 325 mg PO DAILY [facility] Last Admin: 06/27/18 10:20 Dose: 325 mg Ketorolac Tromethamine (Toradol) 15 mg IVP Q8 PRN PRN Reason: Pain, moderate (4-7) Last Admin: 06/26/18 17:19 Dose: 15 mg Pantoprazole Sodium (Protonix Ec Tab) 40 mg PO DAILY [facility] Last Admin: 06/27/18 10:20 Dose: 40 mg Pneumococcal Polyvalent Vaccine (Pneumovax 23 Vaccine) 0.5 ml IM .ONCE ONE Stop: 06/28/18 10:01 - Labs Labs: 06/27/18 11:58 06/27/18 11:58 - Constitutional Appears: Well - Head Exam Head Exam: ATRAUMATIC, NORMAL INSPECTION, NORMOCEPHALIC - Eye Exam Eye Exam: EOMI, Normal appearance, PERRL Pupil Exam: NORMAL ACCOMODATION, PERRL - ENT Exam ENT Exam: Mucous Membranes Moist, Normal Exam - Neck Exam Neck Exam: Full ROM, Normal Inspection. absent: Lymphadenopathy - Respiratory Exam Respiratory Exam: Decreased Breath Sounds - Cardiovascular Exam Cardiovascular Exam: REGULAR RHYTHM, +S1, +S2 - GI/Abdominal Exam GI & Abdominal Exam: Soft, Diminished Bowel Sounds - Rectal Exam Rectal Exam: Deferred - Neurological Exam Neurological Exam: Oriented x3 Assessment and Plan (1) Abdominal pain Status: Acute (2) Abdominal wall pain Status: Acute (3) DUB (dysfunctional uterine bleeding) Status: Acute (4) Ovarian cyst Status: Acute (5) Pelvic pain Status: Acute (6) Symptomatic anemia Status: Acute (7) Thrombocytopenia Status: Acute (8) Uterine fibroid Status: Acute - Assessment and Plan (Free Text) Plan: labs reviewed vitals reviewed medications reviewed plan discussed with patient moderate complexity of care Kaycee Giloserna Toradol Protonix Pneumovax 23
--- NOTE | 2018-06-27 22:07 | CP.PCM.CON ---
History of Present Illness - History of Present Illness History of Present Illness: 38 year old female with a history of uterine fibroids, menorrhagia, admitted with symptomatic anemia. The patient reports to heavy vaginal bleeding for about 3 weeks time. She began to feel weak and lightheaded and came to the ER. In the ER, she was found to have a hgb of 5.2. She is s/p PRBC transfusion and notes to feeling better. Past medical history: uterine fibroids, menorrhagia Past surgical history: ectopic Family history: Denies hematologic and oncologic problems SOcial history: DEneis tobacco,alcohol, and illicit drug use. ALlergies: NKA Review of systems: All remaining review of systems including HEENT, cardiovascular, respiratory, gastrointestinal, genitourinary,musculoskeletal, dermatologic,neurologic and psychiatric are negative unless mentioned in the HPI. Past Patient History - Tetanus Immunizations Tetanus Immunization: Unknown - Past Medical History & Family History Past Medical History?: Yes - Past Social History Smoking Status: Never Smoked - CARDIAC Hx Cardiac Disorders: No - PULMONARY Hx Respiratory Disorders: No - NEUROLOGICAL Hx Neurological Disorder: Yes Hx Dizziness: Yes Other/Comment: Gonzalez's palsy - HEENT Hx HEENT Problems: No - RENAL Hx Chronic Kidney Disease: No - ENDOCRINE/METABOLIC Hx Endocrine Disorders: No - HEMATOLOGICAL/ONCOLOGICAL Hx Anemia: Yes - INTEGUMENTARY Hx Dermatological Problems: No - MUSCULOSKELETAL/RHEUMATOLOGICAL Hx Falls: No - GASTROINTESTINAL Hx Constipation: Yes - GENITOURINARY/GYNECOLOGICAL Hx Genitourinary Disorders: Yes Hx Reproductive Disorders: Yes Other/Comment: Uterus didelphys; endometriosis - PSYCHIATRIC Hx Substance Use: No - SURGICAL HISTORY Hx Surgeries: Yes Hx Section: Yes Other/Comment: Ectopic 2001 S/P surgery - ANESTHESIA Hx Anesthesia: Yes Hx Anesthesia Reactions: No Meds Allergies/Adverse Reactions: Allergies Allergy/AdvReac Type Severity Reaction Status Date / Time No Known Allergies Allergy Verified 06/26/18 10:57 - Medications Medications: Current Medications Ferric Sodium Gluconate Complex (Ferrlecit) 125 mg IVPB DAILY [facility] Stop: 07/05/18 10:01 Last Admin: 06/27/18 10:20 Dose: 125 mg Ferrous Sulfate (Feosol) 325 mg PO DAILY [facility] Last Admin: 06/27/18 10:20 Dose: 325 mg Ketorolac Tromethamine (Toradol) 15 mg IVP Q8 PRN PRN Reason: Pain, moderate (4-7) Last Admin: 06/26/18 17:19 Dose: 15 mg Pantoprazole Sodium (Protonix Ec Tab) 40 mg PO DAILY [facility] Last Admin: 06/27/18 10:20 Dose: 40 mg Pneumococcal Polyvalent Vaccine (Pneumovax 23 Vaccine) 0.5 ml IM .ONCE ONE Stop: 06/28/18 10:01 Physical Exam - Head Exam Head Exam: ATRAUMATIC - Eye Exam Eye Exam: Normal appearance - ENT Exam ENT Exam: Mucous Membranes Dry - Respiratory Exam Respiratory Exam: NORMAL BREATHING PATTERN - Cardiovascular Exam Cardiovascular Exam: +S1, +S2 - GI/Abdominal Exam GI & Abdominal Exam: Normal Bowel Sounds - Extremities Exam Extremities exam: Positive for: normal inspection - Neurological Exam Neurological exam: Oriented x3 - Psychiatric Exam Psychiatric exam: Normal Affect, Normal Mood - Skin Skin Exam: Warm Results - Vital Signs Recent Vital Signs: Last Vital Signs Temp 98.9 F 06/27/18 21:35 Pulse 76 06/27/18 21:35 Resp 18 06/27/18 21:35 BP 94/61 L 06/27/18 21:35 Pulse Ox 100 06/27/18 16:43 - Labs Result Diagrams: 06/28/18 06:28 06/27/18 11:58 Labs: Laboratory Results - last 24 hr 06/26/18 06/27/18 06/27/18 11:16 11:58 11:58 WBC 7.4 RBC 3.11 L Hgb 7.7 L D Hct 23.3 L MCV 75.0 L D MCH 24.6 L MCHC 32.8 L RDW 22.0 H Plt Count 109 L D MPV 10.7 Neut % (Auto) 57.8 Lymph % (Auto) 28.8 [place] % (Auto) 11.9 H Eos % (Auto) 0.7 Baso % (Auto) 0.8 Neut # (Auto) 4.2 Lymph # (Auto) 2.1 [place] # (Auto) 0.9 H Eos # (Auto) 0.1 Baso # (Auto) 0.1 Differential Comment Retic Count Sodium Potassium Chloride Carbon Dioxide Anion Gap BUN Creatinine Est GFR ( Amer) Est GFR (Non-Af Amer) Random Glucose Calcium Phosphorus Magnesium Ferritin 7.2 Total Bilirubin AST ALT Alkaline Phosphatase Total Protein Albumin Globulin Albumin/Globulin Ratio Vitamin B12 716 Folate 12.9 Blood Type O POSITIVE Antibody Screen Negative 06/27/18 06/27/18 11:58 11:58 WBC RBC Hgb Hct MCV MCH MCHC RDW Plt Count MPV Neut % (Auto) Lymph % (Auto) [place] % (Auto) Eos % (Auto) Baso % (Auto) Neut # (Auto) Lymph # (Auto) [place] # (Auto) Eos # (Auto) Baso # (Auto) Differential Comment Retic Count 2.6 H Sodium 140 Potassium 3.9 Chloride 107 Carbon Dioxide 25 Anion Gap 12 BUN 8 Creatinine 0.6 L Est GFR ( Amer) > 60 Est GFR (Non-Af Amer) > 60 Random Glucose 91 D Calcium 8.3 L Phosphorus 3.0 Magnesium 2.1 Ferritin Total Bilirubin 0.8 AST 22 ALT 24 Alkaline Phosphatase 53 Total Protein 6.0 L Albumin 3.3 L D Globulin 2.7 Albumin/Globulin Ratio 1.2 Vitamin B12 Folate Blood Type Antibody Screen Assessment & Plan (1) Symptomatic anemia Assessment and Plan: iron deficiency anemia secondary to menoarrhagia from uterine fibroids agree with transfusion support IV iron daily [facility] TECHNICIAN evaluation Status: Acute (2) Thrombocytopenia Assessment and Plan: mild likely consumptive from bleeding Thank you for this interesting consult. Status: Acute
[2018-06-28 00:10] VITALS: RESP 20
[2018-06-28 06:48] LABS: BASO # 0.1 K/uL (0.0-0.2); BASO % 0.8 % (0.0-2.0); EOS # 0.1 K/uL (0.0-0.7); EOS % 1.2 % (0.0-4.0); HEMOGLOBIN 9.5 g/dL (11.0-16.0); LYMPH # 1.8 K/uL (1.0-4.3); LYMPH % 20.3 % (20.0-40.0); MEAN CELL VOLUME 78.9 fL (81.0-99.0); MEAN CORPUSCULAR HEMOGLOBIN 25.2 pg (27.0-31.0); MEAN CORPUSCULAR HGB CONC 31.9 g/dL (33.0-37.0); MEAN PLATELET VOLUME 11.1 fL (7.2-11.7); MONO % 11.5 % (0.0-10.0); NEUT # 5.9 K/uL (1.8-7.0); NEUT % 66.2 % (50.0-75.0); NRBC % 0.2 % (0.0-2.0); RBC 3.77 Mil/uL (3.80-5.20); RED CELL DISTRIBUTION WIDTH 23.1 % (11.5-14.5); WHITE BLOOD COUNT 8.8 K/uL (4.8-10.8)
[2018-06-28] MEDS ORDERED: Pneumococcal 23-Valent Vaccine IM ONE (10:00)
[2018-06-28] MEDS: Pantoprazole 40 mg EC Tab PO SCH (10:05)
[2018-06-28] MEDS: Ferric Sodium Gluconat Complex 62.5 mg/5 ml Vial IVPB SCH (10:05)
--- NOTE | 2018-06-28 10:17 | CP.PCM.PN ---
Subjective - Date & Time of Evaluation Date of Evaluation: 06/28/18 - Subjective Subjective: no c/o vomiting, no diarrhea, no fever Objective - Vital Signs/Intake and Output Vital Signs (last 24 hours): Temp Pulse Resp BP Pulse Ox 97.9 F 70 20 104/69 98 06/28/18 07:00 06/28/18 07:00 06/28/18 07:00 06/28/18 07:00 06/28/18 08:26 Intake and Output: 06/28/18 06/28/18 06:59 18:59 Intake Total 400 Balance 400 - Medications Medications: Current Medications Ferric Sodium Gluconate Complex (Ferrlecit) 125 mg IVPB DAILY [facility] Stop: 07/05/18 10:01 Last Admin: 06/28/18 10:05 Dose: 125 mg Ferrous Sulfate (Feosol) 325 mg PO DAILY [facility] Last Admin: 06/28/18 10:05 Dose: 325 mg Ketorolac Tromethamine (Toradol) 15 mg IVP Q8 PRN PRN Reason: Pain, moderate (4-7) Last Admin: 06/26/18 17:19 Dose: 15 mg Pantoprazole Sodium (Protonix Ec Tab) 40 mg PO DAILY [facility] Last Admin: 06/28/18 10:05 Dose: 40 mg - Labs Labs: 06/28/18 06:28 06/27/18 11:58 - Constitutional Appears: Well - Head Exam Head Exam: ATRAUMATIC, NORMAL INSPECTION, NORMOCEPHALIC - Eye Exam Eye Exam: EOMI, Normal appearance, PERRL Pupil Exam: NORMAL ACCOMODATION, PERRL - ENT Exam ENT Exam: Mucous Membranes Moist, Normal Exam - Neck Exam Neck Exam: Full ROM, Normal Inspection. absent: Lymphadenopathy - Respiratory Exam Respiratory Exam: Decreased Breath Sounds - Cardiovascular Exam Cardiovascular Exam: REGULAR RHYTHM, +S1, +S2 - GI/Abdominal Exam GI & Abdominal Exam: Soft, Diminished Bowel Sounds - Rectal Exam Rectal Exam: Deferred - Neurological Exam Neurological Exam: Oriented x3 Assessment and Plan (1) Abdominal pain Status: Acute (2) Abdominal wall pain Status: Acute (3) DUB (dysfunctional uterine bleeding) Status: Acute (4) Ovarian cyst Status: Acute (5) Pelvic pain Status: Acute (6) Symptomatic anemia Status: Acute (7) Thrombocytopenia Status: Acute (8) Uterine fibroid Status: Acute - Assessment and Plan (Free Text) Plan: Ferrlecit Feosol Toradol Protonix Moderate to high complexity of care. Plan of care discussed with patient &/or family & staff. Medications reviewed and reconciled. Labs reviewed. Vitals reviewed.
[2018-06-28 16:13] VITALS: BP 108/72; PULSE 80; TEMP 97.8; O2SAT 100
--- NOTE | 2018-06-28 17:27 | CP.PCM.PN ---
Subjective - Date & Time of Evaluation Date of Evaluation: 06/28/18 Time of Evaluation: 17:28 - Subjective Subjective: alert and oriented x3, no distress. Objective - Vital Signs/Intake and Output Vital Signs (last 24 hours): Temp Pulse Resp BP Pulse Ox 97.8 F 80 20 108/72 100 06/28/18 16:00 06/28/18 16:00 06/28/18 16:00 06/28/18 16:00 06/28/18 16:00 Intake and Output: 06/28/18 06/28/18 06:59 18:59 Intake Total 400 400 Balance 400 400 - Medications Medications: Current Medications Ferric Sodium Gluconate Complex (Ferrlecit) 125 mg IVPB DAILY [facility] Stop: 07/05/18 10:01 Last Admin: 06/28/18 10:05 Dose: 125 mg Ferrous Sulfate (Feosol) 325 mg PO DAILY [facility] Last Admin: 06/28/18 10:05 Dose: 325 mg Pantoprazole Sodium (Protonix Ec Tab) 40 mg PO DAILY [facility] Last Admin: 06/28/18 10:05 Dose: 40 mg - Labs Labs: 06/28/18 06:28 06/27/18 11:58 Assessment and Plan - Assessment and Plan (Free Text) Assessment: 38 year old female admitted with severe anemia, vaginal bleeding, seen and examined. Alert and orientedx3, hemoglobin 9.[address] Felisha Christian, plan to discharge home today, advised to follow up with [facility] office as outpatient.
--- NOTE | 2018-06-28 22:24 | CP.PCM.PN ---
Subjective - Date & Time of Evaluation Date of Evaluation: 06/28/18 Time of Evaluation: 12:00 - Subjective Subjective: Feeling better Objective - Vital Signs/Intake and Output Vital Signs (last 24 hours): Temp Pulse Resp BP Pulse Ox 97.8 F 80 20 108/72 100 06/28/18 16:00 06/28/18 16:00 06/28/18 16:00 06/28/18 16:00 06/28/18 16:00 Intake and Output: 06/28/18 06/29/18 18:59 06:59 Intake Total 400 Balance 400 - Labs Labs: 06/28/18 06:28 06/27/18 11:58 - Head Exam Head Exam: ATRAUMATIC - Eye Exam Eye Exam: Normal appearance - ENT Exam ENT Exam: Mucous Membranes Dry - Respiratory Exam Respiratory Exam: NORMAL BREATHING PATTERN - Cardiovascular Exam Cardiovascular Exam: +S1, +S2 - GI/Abdominal Exam GI & Abdominal Exam: Normal Bowel Sounds Assessment and Plan (1) Symptomatic anemia Assessment & Plan: menorrhagia, uterine fibroids s/p PRBC transfusion IV iron digester 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
== END 2018-06-28 17:27 | disposition home or self-care (01) ==
LOC: C.ER 10:50 → C.9E 13:29 → C.3T 14:32
PROVIDERS: ADMIT Internal Medicine Nephrology; ATTEND Internal Medicine Nephrology
DX: D50.0 Iron deficiency anemia secondary to blood loss (chronic) (principal); D25.9 Leiomyoma of uterus, unspecified; N93.8 Other specified abnormal uterine and vaginal bleeding; N88.8 Other specified noninflammatory disorders of cervix uteri; N83.209 Unspecified ovarian cyst, unspecified side; N92.0 Excessive and frequent menstruation with regular cycle; D69.6 Thrombocytopenia, unspecified; R06.02 Shortness of breath; Z90.721 Acquired absence of ovaries, unilateral; Z98.891 History of uterine scar from previous surgery
CPT/HCPCS: 36415; 36430; 74177; 80053; 81001; 81025; 82607; 82728; 82746; 83735; 84100; 84702; 85025; 85044; 86850; 86900; 86920; 87040; 87086; 96365; 96366; 96375; 99285; G0378; J1885; J2405; J2916; J7030; J7040; P9051; Q9966; Q9967